=== PATIENT | female | born 1960 | race Caucasian/White ===

== ENCOUNTER 2017-05-18 09:21 | Outpatient (CLI) | payer OTHER ==
--- NOTE | 2017-05-19 18:12 | Mammography Report ---
DIGITAL BILATERAL SCREENING MAMMOGRAM: 05/18/2017 HISTORY: A 56-year-old female, family history of breast cancer. COMPARISON: 03/2015, 02/2014, 02/2013, 12/2011, 12/2010, 12/2009. TECHNIQUE: Routine CC and MLO projections were obtained of the breasts. FINDINGS: Scattered fibroglandular tissue is present within the breasts. There are no dominant jt s, suspicious microcalcifications, or secondary signs of malignancy. In comparison to the previous st udies, there are no significant changes. The pattern of asymmetry is stable given positional differences. ASSESSMENT: NO MAMMOGRAPHIC EVIDENCE OF MALIGNANCY. NO SIGNIFICANT INTERVAL CHANGES. RECOMMENDATION: Screening mammography is recommended annually. BI-RADS category 1 - negative. STANDARD QUALIFYING STATEMENTS 1. This examination was reviewed with the aid of Computed-Aided Detection (CAD). 2. A negative or benign imaging report should not delay biopsy if clinically suspicious findings are present. Consider surgical consultation if warranted. More than 5% of cancers are not identified by i maging. 3. Dense breasts may obscure an underlying neoplasm. JOB #: [id number] EXT JOB #:[id number]
== END 2017-05-18 09:22 | disposition home or self-care (01) ==
LOC: DI 09:21
PROVIDERS: ATTEND Nurse Practitioner Family
DX: Z12.31 Encounter for screening mammogram for malignant neoplasm of breast (principal); Z80.3 Family history of malignant neoplasm of breast
CPT/HCPCS: 77067

== ENCOUNTER 2017-11-04 14:40 | Outpatient (CLI) | payer OTHER ==
[2017-11-04 18:54] LABS: PHOSPHORUS 3.2 mg/dL (2.5-4.6)
== END 2017-11-04 14:41 | disposition home or self-care (01) ==
LOC: LAB.F 14:40
PROVIDERS: ATTEND Internal Medicine Nephrology
DX: N18.3 Chronic kidney disease, stage 3 (moderate) (principal)
CPT/HCPCS: 36415; 80069; 83970

== ENCOUNTER 2017-12-22 20:07 | Outpatient (CLI) | payer OTHER ==
--- NOTE | 2017-12-23 10:50 | Ultrasound Report ---
RENAL ULTRASOUND: 12/22/2017 CLINICAL INDICATION: Elevated creatinine, chronic kidney disease. TECHNIQUE: Real-time scanning was performed with employee's representative static images obtained. FINDINGS: The right kidney measures 10.1 x 5.0 x 4.4 cm. No hydronephrosis, focal renal lesion, or perinephric collection is seen. The left kidney measures 10.2 x 6.2 x 5.3 cm. An 8 mm cyst is noted in the upper pole. No hydronephrosis, solid renal lesion, or perinephric collection is present. Prevoid, the urinary bladder measures 13.1 x 8.9 x 4.6 cm, yielding a prevoid volume of 283 mL. Postvoid residual is 19 mL. No focal bladder lesion is seen. IMPRESSION: NO HYDRONEPHROSIS. NO SIGNIFICANT POSTVOID RESIDUAL. INCIDENTAL LEFT RENAL CYST. TD: 12/23/2017 10:49
== END 2017-12-22 20:08 | disposition home or self-care (01) ==
LOC: DI 20:07
PROVIDERS: ATTEND Internal Medicine Nephrology
DX: N18.3 Chronic kidney disease, stage 3 (moderate) (principal)
CPT/HCPCS: 76770

== ENCOUNTER 2018-05-10 08:51 | Emergency (ER) | payer OTHER ==
--- NOTE | 2018-05-10 09:50 | ED Physician Documentation ---
PD HPI MHE - Stated complaint Stated Complaint: MHE - Chief complaint Chief Complaint: MHE - History obtained from History obtained from: Patient, Family - History of Present Illness Primary symptom: Psychosis, Manic. No: Off meds (but daughter says the patient is not taking them regularly the past week or so), Out of meds Timing - onset: How many weeks ago (She has been having hypomania for about a month. She saw her psychiatric provider April 21 and had an increase in her Abilify from 5-15 mg daily and also Depakote added. She saw her provider again a week and a half ago with increasing the Depakote level dosing slightly. The patient is irregularly taking her medications according to family. She has been having more manic symptoms in the past week. She has been spending money and acting hypersexual and cut her hair with home scissors last night. She had not had a manic episode like this for 12 years. She had been treated pretty well with medications including lithium but the lithium was discontinued 3 months ago due to an elevation of creatinine.) Contributing factors: Family, Other (change in meds - taken off lithium 3 months ago due to renal effect. Started new med just 3 weeks ago when starting with hypomania.) Similar symptoms before: Diagnosis (bipolar) Recently seen: Clinic (3 weeks ago and again 1 1/2 weeks ago.) Review of Systems Constitutional: denies: Fever Nose: reports: Congestion, Sinus pressure / pain. denies: Rhinorrhea / runny nose Throat: denies: Sore throat Cardiac: denies: Chest pain / pressure Respiratory: denies: Dyspnea, Cough, Wheezing GI: reports: Vomiting (once today). denies: Abdominal Pain, Nausea, Diarrhea, Bloody / black stool : denies: Dysuria, Frequency, Missed period Skin: denies: Rash Neurologic: reports: Altered mental status. 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 - Present Medications Home Medications: Ambulatory Orders Medication Instructions Recorded Confirmed ARIPiprazole [Abilify] 5 mg 05/10/18 Bupropion HCl [Wellbutrin Sr] 250 mg 05/10/18 Divalproex Sodium [Depakote] 250 mg 05/10/18 Thyroid,Pork [Nature-Throid] 65 mg 05/10/18 lamoTRIgine [LaMICtal] 25 mg 05/10/18 - Allergies Allergies/Adverse Reactions: Allergies Allergy/AdvReac Type Severity Reaction Status Date / Time Opioids - Morphine Analogues Allergy Mild Itching Verified 05/10/18 09:09 Sulfa (Sulfonamide Allergy Mild Itching Verified 05/10/18 09:10 Antibiotics) - Social History Does the pt smoke?: Yes Smoking Status: Current every day smoker Does the pt drink ETOH?: No Does the pt have substance abuse?: Yes Substance Use and Type: Marijuana PD ED PE NORMAL - Vitals Vital signs reviewed: Yes - General General: Alert and oriented X 3, Well developed/nourished, Other (considerable tangential thought process. Hypersexual references. Close cropped irregular haircut noted. ) - HEENT HEENT: Pharynx benign - Neck Neck: Supple, no meningeal sign, No adenopathy - Cardiac Cardiac: RRR, No murmur - Respiratory Respiratory: Clear bilaterally - Abdomen Abdomen: Soft, Non tender - Derm Derm: Normal color, Warm and dry - Extremities Extremities: No tenderness to palpate, Normal ROM s pain, No edema - Neuro Neuro: Alert and oriented X 3, No motor deficit, Normal speech Eye Opening: Spontaneous Motor: Obeys Commands Verbal: Oriented GCS Score: 15 - Psych Psych: No: Normal mood (somewhat elated and pressured speech. flight of associations.) Results - Vitals Vitals: Vital Signs - 24 hr 05/10/18 05/10/18 08:59 17:24 Temperature 36.5 C 36.3 C L Heart Rate 95 90 Respiratory 16 18 Rate Blood Pressure 129/86 H 130/74 O2 Saturation 100 99 Oxygen O2 Source Room air - Labs Labs: Laboratory Tests 05/10/18 05/10/18 05/10/18 10:00 10:00 10:00 WBC RBC Hgb Hct MCV MCH MCHC RDW Plt Count MPV Neut # (Auto) Lymph # (Auto) [place] # (Auto) Eos # (Auto) Baso # (Auto) Absolute Nucleated RBC Nucleated RBC % Sodium Potassium Chloride Carbon Dioxide Anion Gap BUN Creatinine Estimated GFR (MDRD) Glucose Calcium Magnesium Total Bilirubin AST ALT Alkaline Phosphatase Total Protein Albumin Globulin Albumin/Globulin Ratio Lipase Urine Color YELLOW Urine Clarity CLEAR Urine pH 6.0 Ur Specific [place] 1.020 1.020 Urine Protein NEGATIVE Urine Glucose (UA) NEGATIVE Urine Ketones TRACE Urine Occult Blood NEGATIVE Urine Nitrite NEGATIVE Urine Bilirubin NEGATIVE Urine Urobilinogen 0.2 (NORMAL) Ur Leukocyte Esterase NEGATIVE Ur Microscopic Review NOT INDICATED Urine Culture Comments NOT INDICATED Urine HCG, Qual NEGATIVE Last Dose Date Last Dose Time Salicylates Urine Opiates Screen NEGATIVE Ur Oxycodone Screen NEGATIVE Urine Methadone Screen NEGATIVE Ur Propoxyphene Screen NEGATIVE Acetaminophen Ur Barbiturates Screen NEGATIVE Valproic Acid Ur Tricyclics Screen NEGATIVE Ur Phencyclidine Scrn NEGATIVE Ur Amphetamine Screen NEGATIVE U Methamphetamines Scrn NEGATIVE U Benzodiazepines Scrn NEGATIVE Urine Cocaine Screen NEGATIVE U Cannabinoids Screen POSITIVE H Ethyl Alcohol 05/10/18 05/10/18 10:30 10:30 WBC 9.5 RBC 4.64 Hgb 11.9 L Hct 36.6 L MCV 78.9 L MCH 25.7 L MCHC 32.5 RDW 18.1 H Plt Count 281 MPV 7.2 L Neut # (Auto) 6.4 Lymph # (Auto) 2.3 [place] # (Auto) 0.7 Eos # (Auto) 0.0 Baso # (Auto) 0.1 Absolute Nucleated RBC 0.00 Nucleated RBC % 0.0 Sodium 137 Potassium 3.5 Chloride 106 Carbon Dioxide 25 Anion Gap 6.0 BUN 22 H Creatinine 0.9 Estimated GFR (MDRD) 65 L Glucose 96 Calcium 9.0 Magnesium 2.1 Total Bilirubin 0.7 AST 26 ALT 27 Alkaline Phosphatase 72 Total Protein 6.8 Albumin 3.5 Globulin 3.3 Albumin/Globulin Ratio 1.1 Lipase 30 Urine Color Urine Clarity Urine pH Ur Specific [place] Urine Protein Urine Glucose (UA) Urine Ketones Urine Occult Blood Urine Nitrite Urine Bilirubin Urine Urobilinogen Ur Leukocyte Esterase Ur Microscopic Review Urine Culture Comments Urine HCG, Qual Last Dose Date UNKNOWN Last Dose Time UNKNOWN Salicylates < 6.0 Urine Opiates Screen Ur Oxycodone Screen Urine Methadone Screen Ur Propoxyphene Screen Acetaminophen < 10 L Ur Barbiturates Screen Valproic Acid 39.9 Ur Tricyclics Screen Ur Phencyclidine Scrn Ur Amphetamine Screen U Methamphetamines Scrn U Benzodiazepines Scrn Urine Cocaine Screen U Cannabinoids Screen Ethyl Alcohol < 5.0 PD MEDICAL DECISION MAKING - ED course Complexity details: re-evaluated patient (here in ED, the patient has loose and tangential thought process, she is emptying soap dispensers and filling them with water and pouring it on herself, she is wanting a sweatshirt since she is cool, and offered a blanket, but says "no, it has to be a sweatshirt". Laughing and singing loudly at times, then quieter. Seems to be manic and not able to take care of herself. ), considered differential (She is having considerable manic symptoms despite increased medicines over the last 3 weeks. She is more manic the past week. She is somewhat aware of her symptoms but her family says she has been irregularly taking her medicines the last several days to week. I believe she will need hospitalization to control her symptoms.), d/w patient, d/ w databases computer consultant (Plastic Parts Designer, then [facility] Kristina, who felt patient was disabled due to her psychosis and felt she needed to be hospitalized. ) - Sepsis Event Vital Signs: Vital Signs - 24 hr 05/10/18 05/10/18 08:59 17:24 Temperature 36.5 C 36.3 C L Heart Rate 95 90 Respiratory 16 18 Rate Blood Pressure 129/86 H 130/74 O2 Saturation 100 99 Oxygen O2 Source Room air Departure - Departure Disposition: 65 Psych Hosp/Unit DC/Xfer Clinical Impression: Manic behavior, Affective psychosis Bipolar disorder (manic depression) Qualifiers: Active/Remission status: currently active Current bipolar episode type: manic Current episode severity: severe Psychotic features: with psychotic features Qualified Code(s): F31.2 - Bipolar disorder, current episode manic severe with psychotic features Condition: Stable Record reviewed to determine appropriate education?: Yes
[2018-05-10] MEDS ORDERED: ACETAMINOPHEN 325 MG TABLET PO STA (10:19)
[2018-05-10 10:21] LABS: BILIRUBIN,URINE NEGATIVE (NEGATIVE); GLUCOSE, URINE (UA) NEGATIVE (NEGATIVE); KETONES,URINE (UA) TRACE mg/dL (NEGATIVE); LEUKOCYTE ESTERASE, URINE NEGATIVE (NEGATIVE); NITRITE,URINE NEGATIVE (NEGATIVE); OCCULT BLOOD,URINE NEGATIVE (NEGATIVE); PROTEIN,URINE NEGATIVE (NEGATIVE); UROBILINOGEN,URINE 0.2 (NORMAL) E.U./dL (NORMAL)
[2018-05-10 10:24] LABS: CLARITY,URINE CLEAR (CLEAR)
[2018-05-10 10:40] LABS: BASOPHILS # (AUTO) 0.1 10^3/uL (0.0-0.1); BASOPHILS % (AUTO) 0.9 %; EOSINOPHILS % (AUTO) 0.5 %; HGB - HEMOGLOBIN 11.9 g/dL (12.0-16.0); LYMPHOCYTES # (AUTO) 2.3 10^3/uL (1.5-3.5); LYMPHOCYTES % (AUTO) 23.8 %; MEAN CORPUSCULAR HEMOGLOBIN 25.7 pg (27.0-31.0); MEAN CORPUSCULAR HGB CONC 32.5 g/dL (32.0-36.0); MEAN CORPUSCULAR VOLUME 78.9 fL (81.0-99.0); MEAN PLATELET VOLUME 7.2 fL (7.9-10.8); MONOCYTES # (AUTO) 0.7 10^3/uL (0.0-1.0); MONOCYTES % (AUTO) 7.1 %; NEUTROPHILS # (AUTO) 6.4 10^3/uL (1.5-6.6); NEUTROPHILS % (AUTO) 67.7 %; PLT - PLATELET COUNT 281 10^3/uL (130-450); RED BLOOD COUNT 4.64 10^6/uL (4.20-5.40); RED CELL DISTRIBUTION WIDTH 18.1 % (12.0-15.0); WHITE BLOOD COUNT 9.5 x10^3/uL (4.8-10.8)
[2018-05-10 10:58] LABS: ALBUMIN 3.5 g/dL (3.2-5.5); ALBUMIN/GLOBULIN RATIO 1.1 (1.0-2.2); ALKALINE PHOSPHATASE 72 IU/L (42-121); ALT ALANINE AMINOTRANSFERASE 27 IU/L (10-60); AST ASPARTATE AMINOTRANSFERASE 26 IU/L (10-42); BILIRUBIN,TOTAL 0.7 mg/dL (0.2-1.0); BUN - BLOOD UREA NITROGEN 22 mg/dL (6-20); CARBON DIOXIDE - CO2 25 mmol/L (21-32); CHLORIDE 106 mmol/L (101-111); CREATININE 0.9 mg/dL (0.4-1.0); GFR - MDRD 65 (>89); GLUCOSE 96 mg/dL (70-100); LIPASE 30 U/L (22-51); MAGNESIUM 2.1 mg/dL (1.7-2.8); SALICYLATE < 6.0 mg/dL; SODIUM 137 mmol/L (135-145); TOTAL PROTEIN 6.8 g/dL (6.7-8.2); VALPROIC ACID (DEPAKOTE) 39.9 ug/mL
[2018-05-10 11:04] LABS: ACETAMINOPHEN < 10 ug/mL (10-30)
[2018-05-10 11:11] LABS: MUDS CUTOFF CONCENTRATIONS CUTOFF CONC BELOW:
[2018-05-10 11:18] LABS: HCG UR QUAL NEGATIVE
[2018-05-10 11:26] LABS: AMPHETAMINE SCREEN,URINE NEGATIVE (NEGATIVE); BENZODIAZEPINES SCREEN, URINE NEGATIVE (NEGATIVE); COCAINE SCREEN URINE NEGATIVE (NEGATIVE); METHADONE SCREEN, URINE NEGATIVE (NEGATIVE); METHAMPHETAMINES SCREEN, URINE NEGATIVE (NEGATIVE); OPIATE SCREEN, URINE NEGATIVE (NEGATIVE); OXYCODONE SCREEN, URINE NEGATIVE (NEGATIVE); PROPOXYPHENE SCREEN, URINE NEGATIVE (NEGATIVE); TRICYCLIC ANTIDEPRESSANT,URINE NEGATIVE (NEGATIVE)
[2018-05-10] MEDS ORDERED: OLANZapine ODT 5 MG TABLET TL ONE (15:09)
[2018-05-10] MEDS ORDERED: LORazepam 0.5 MG TABLET PO STA (19:18)
[2018-05-10] MEDS ORDERED: OLANZapine ODT 5 MG TABLET TL STA (19:18)
[2018-05-10] MEDS ORDERED: HALOPERIDOL 5 MG/ML VIAL ONE (19:30)
[2018-05-10] MEDS ORDERED: HALOPERIDOL 5 MG/ML VIAL IM STA (19:33)
[2018-05-10 23:40] VITALS: BP 110/72
== END 2018-05-11 00:05 ==
LOC: ED 08:51
DX: F31.2 Bipolar disorder, current episode manic severe with psychotic features (principal); E03.9 Hypothyroidism, unspecified; F17.200 Nicotine dependence, unspecified, uncomplicated
CPT/HCPCS: 36415; 80053; 80164; 80306; 80307; 80320; 80329; 81003; 81025; 83690; 83735; 84443; 85025; 99284; 99285; A9270; 81001; 87086; 99283

== ENCOUNTER 2018-06-25 08:46 | Outpatient (CLI) | payer OTHER ==
[2018-06-25 12:59] LABS: BASOPHILS % (AUTO) 0.3 %; EOSINOPHILS # (AUTO) 0.2 10^3/uL (0.0-0.7); EOSINOPHILS % (AUTO) 3.2 %; HGB - HEMOGLOBIN 11.5 g/dL (12.0-16.0); LYMPHOCYTES # (AUTO) 1.9 10^3/uL (1.5-3.5); LYMPHOCYTES % (AUTO) 33.4 %; MEAN CORPUSCULAR HEMOGLOBIN 25.7 pg (27.0-31.0); MEAN CORPUSCULAR HGB CONC 32.8 g/dL (32.0-36.0); MEAN CORPUSCULAR VOLUME 78.4 fL (81.0-99.0); MEAN PLATELET VOLUME 9.8 fL (7.9-10.8); MONOCYTES # (AUTO) 0.3 10^3/uL (0.0-1.0); MONOCYTES % (AUTO) 5.9 %; NEUTROPHILS # (AUTO) 3.3 10^3/uL (1.5-6.6); NEUTROPHILS % (AUTO) 57.2 %; PLT - PLATELET COUNT 39 10^3/uL (130-450); RED BLOOD COUNT 4.46 10^6/uL (4.20-5.40); RED CELL DISTRIBUTION WIDTH 16.9 % (12.0-15.0); WHITE BLOOD COUNT 5.8 x10^3/uL (4.8-10.8)
[2018-06-25 13:15] LABS: T4 (THYROXINE) 7.9 ug/dL (6.09-12.23)
[2018-06-25 13:21] LABS: THYROID STIMULATING HORMONE 3.43 uIU/mL (0.34-5.60)
[2018-06-25 13:22] LABS: ALBUMIN 3.3 g/dL (3.2-5.5); ALBUMIN/GLOBULIN RATIO 0.9 (1.0-2.2); ALKALINE PHOSPHATASE 71 IU/L (42-121); ALT ALANINE AMINOTRANSFERASE 34 IU/L (10-60); AST ASPARTATE AMINOTRANSFERASE 32 IU/L (10-42); BILIRUBIN,TOTAL 0.5 mg/dL (0.2-1.0); BUN - BLOOD UREA NITROGEN 24 mg/dL (6-20); CALCIUM 9.1 mg/dL (8.5-10.3); CARBON DIOXIDE - CO2 25 mmol/L (21-32); CHLORIDE 106 mmol/L (101-111); CHOL/HDL RATIO 3.6 (<4.4); CHOLESTEROL 202 mg/dL; CRP HIGH SENSITIVITY 2.8 mg/L; FREE T4 (FREE THYROXINE) 0.67 ng/dL (0.58-1.64); GFR - MDRD 58 (>89); GLUCOSE 91 mg/dL (70-100); HDL CHOLESTEROL 56 mg/dL; LDL CHOLESTEROL,CALCULATED 116 mg/dL; LDL/HDL RATIO 2.1 (<4.4); SODIUM 140 mmol/L (135-145); TOTAL PROTEIN 6.8 g/dL (6.7-8.2); VLDL CHOLESTEROL 30 mg/dL
[2018-06-25 13:51] LABS: HB2 TOTAL 11.9 g/dL; HEMOGLOBIN A1C 0.51 g/dL; HEMOGLOBIN A1C % 6.1 % (4.6-6.2)
== END 2018-06-25 08:47 | disposition home or self-care (01) ==
LOC: LAB.F 08:46
PROVIDERS: ATTEND Registered Nurse
DX: Z00.00 Encounter for general adult medical examination without abnormal findings (principal); E55.9 Vitamin D deficiency, unspecified; E78.5 Hyperlipidemia, unspecified; E03.2 Hypothyroidism due to medicaments and other exogenous substances; R73.9 Hyperglycemia, unspecified; F31.9 Bipolar disorder, unspecified
CPT/HCPCS: 36415; 80053; 80061; 80164; 82306; 82728; 83036; 83721; 84436; 84439; 84443; 84481; 85025; 86141

== ENCOUNTER 2018-07-16 13:30 | Outpatient (CLI) | payer OTHER ==
[2018-07-16 18:32] LABS: BASOPHILS # (AUTO) 0.1 10^3/uL (0.0-0.1); BASOPHILS % (AUTO) 1.7 %; HGB - HEMOGLOBIN 12.2 g/dL (12.0-16.0); LYMPHOCYTES % (AUTO) 16.8 %; MEAN CORPUSCULAR HEMOGLOBIN 25.5 pg (27.0-31.0); MEAN CORPUSCULAR HGB CONC 32.2 g/dL (32.0-36.0); MEAN CORPUSCULAR VOLUME 79.1 fL (81.0-99.0); MEAN PLATELET VOLUME 11.3 fL (7.9-10.8); MONOCYTES # (AUTO) 0.4 10^3/uL (0.0-1.0); MONOCYTES % (AUTO) 6.3 %; NEUTROPHILS # (AUTO) 4.5 10^3/uL (1.5-6.6); NEUTROPHILS % (AUTO) 75.2 %; RED BLOOD COUNT 4.77 10^6/uL (4.20-5.40); RED CELL DISTRIBUTION WIDTH 16.7 % (12.0-15.0)
[2018-07-16 18:46] LABS: PLATELET ESTIMATE, MANUAL DECREASED (<130,000) (NORMAL); PLATELET MORPHOLOGY NORMAL APPEARANCE (NORMAL); RBC MORPHOLOGY (MULTIPLE) NORMAL APPEARANCE (NORMAL)
[2018-07-19 11:54] LABS: PLT - PLATELET COUNT 33 10^3/uL (130-450)
== END 2018-07-16 13:31 | disposition home or self-care (01) ==
LOC: LAB.F 13:30
PROVIDERS: ATTEND Registered Nurse
DX: F31.0 Bipolar disorder, current episode hypomanic (principal)
CPT/HCPCS: 36415; 85025

== ENCOUNTER 2018-07-20 13:12 | Emergency (ER) | payer OTHER ==
[2018-07-20 13:49] LABS: BASOPHILS % (AUTO) 0.4 %; EOSINOPHILS % (AUTO) 0.1 %; HGB - HEMOGLOBIN 12.7 g/dL (12.0-16.0); LYMPHOCYTES # (AUTO) 1.4 10^3/uL (1.5-3.5); LYMPHOCYTES % (AUTO) 19.9 %; MEAN CORPUSCULAR HEMOGLOBIN 25.7 pg (27.0-31.0); MEAN CORPUSCULAR HGB CONC 32.4 g/dL (32.0-36.0); MEAN CORPUSCULAR VOLUME 79.2 fL (81.0-99.0); MEAN PLATELET VOLUME 10.4 fL (7.9-10.8); MONOCYTES # (AUTO) 0.4 10^3/uL (0.0-1.0); MONOCYTES % (AUTO) 5.6 %; NEUTROPHILS # (AUTO) 5.2 10^3/uL (1.5-6.6); PLT - PLATELET COUNT 43 10^3/uL (130-450); RED BLOOD COUNT 4.96 10^6/uL (4.20-5.40); RED CELL DISTRIBUTION WIDTH 16.9 % (12.0-15.0)
[2018-07-20 13:56] LABS: ALBUMIN/GLOBULIN RATIO 1.1 (1.0-2.2); BILIRUBIN,TOTAL 0.6 mg/dL (0.2-1.0); CALCIUM 9.6 mg/dL (8.5-10.3); INR 1.1 (0.8-1.2); TOTAL PROTEIN 7.6 g/dL (6.7-8.2)
--- NOTE | 2018-07-20 15:54 | ED Physician Documentation ---
History of Present Illness - Stated complaint Stated Complaint: BRUISE/LUMP L HIP/ LOW PLATELETS - Chief complaint Chief Complaint: General - Additonal information Additional information: 57-year-old female was sent to the emergency department to be evaluated for a bruise on her abdomen. The patient was found to have low platelets recently and was taken off Depakote. The patient was at her mental health appointment and was sent in for a bruise on her abdomen. The Patient denies any active bleeding, blood in her stools, vomiting or any signs of active hemorrhage.No other associated symptoms. Symptoms are described as mild. 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 - Present Medications Home Medications: Ambulatory Orders Medication Instructions Recorded Confirmed ARIPiprazole [Abilify] 5 mg 05/10/18 Divalproex Sodium [Depakote] 250 mg 05/10/18 Thyroid,Pork [Nature-Throid] 65 mg 05/10/18 buPROPion HCl [Wellbutrin Sr] 250 mg 05/10/18 lamoTRIgine [LaMICtal] 25 mg 05/10/18 - Allergies Allergies/Adverse Reactions: Allergies Allergy/AdvReac Type Severity Reaction Status Date / Time Opioids - Morphine Analogues Allergy Mild Itching Verified 07/20/18 13:18 Sulfa (Sulfonamide Allergy Mild Itching Verified 07/20/18 13:18 Antibiotics) - Social History Does the pt smoke?: Yes Smoking Status: Current every day smoker Does the pt drink ETOH?: No Does the pt have substance abuse?: Yes PD ED PE NORMAL - General General: Alert and oriented X 3, No acute distress - HEENT HEENT: Atraumatic, PERRL, EOMI, Ears normal - Cardiac Cardiac: RRR, Strong equal pulses - Respiratory Respiratory: No respiratory distress, Clear bilaterally - Abdomen Abdomen: Soft, Non tender, Non distended - Derm Derm: Normal color - Extremities Extremities: No deformity, Normal ROM s pain PD ED PE EXPANDED - Derm SKin visual: 1 - bruising (The patient has a very small superficial cutaneous bruise, there is no evidence of underlying hematoma on physical exam. There is no evidence of active bleeding. The bruise appears old with color changes to suggest a old bruise. No signs of active hemorrhage) Results - Vitals Vitals: Vital Signs - 24 hr 07/20/18 13:14 Temperature 36.8 C Heart Rate 91 Respiratory 16 Rate Blood Pressure 132/85 H O2 Saturation 99 Oxygen O2 Source Room air - Labs Labs: Laboratory Tests 07/20/18 07/20/18 07/20/18 13:33 13:33 13:33 WBC 7.0 RBC 4.96 Hgb 12.7 Hct 39.3 MCV 79.2 L MCH 25.7 L MCHC 32.4 RDW 16.9 H Plt Count 43 L MPV 10.4 Neut # (Auto) 5.2 Lymph # (Auto) 1.4 L [place] # (Auto) 0.4 Eos # (Auto) 0.0 Baso # (Auto) 0.0 Absolute Nucleated RBC 0.00 Nucleated RBC % 0.0 PT 12.0 INR 1.1 Sodium 142 Potassium 4.0 Chloride 107 Carbon Dioxide 27 Anion Gap 8.0 BUN 17 Creatinine 1.0 Estimated GFR (MDRD) 58 L Glucose 110 H Calcium 9.6 Total Bilirubin 0.6 AST 30 ALT 45 Alkaline Phosphatase 85 Total Protein 7.6 Albumin 4.0 Globulin 3.6 Albumin/Globulin Ratio 1.1 Lipase 25 PD MEDICAL DECISION MAKING - ED course ED course: The patient's platelets have actually increased from her most recent lab work. The patient has no active bleeding and the bruise that she was sent in for is Small and appears old. There is no under lying evidence of hematoma. Presently, there is no findings that would necessitate further workup in the emergency department nor Emergent transfusion of platelets. I did advise the patient that she needs further workup regarding her thrombocytopenia. I recomm ended that she follow-up with the hematology clinic at the [facility]. I discussed this with the patient and her daughter and they understand and agree. I discussed warning signs and recommended returning to the emergency department immediately for any worsening or any concerns. Departure - Departure Disposition: 01 Home, Self Care Clinical Impression: Thrombocytopenia, Bruise Condition: Good Instructions: Thrombocytopenia Comments: Please schedule an appointment with the plastics production machine operator at the [facility] clinic call [phone] To schedule an appointment for soon as possible. You need further workup and evaluation of your low platelets. Presently, you have no active bleeding and no indication for emergent transfusion. Your condition does require further workup to rule out any other insidious etiology. Please return to the emergency department immediately for any worsening or any concerns.
[2018-07-20 16:02] VITALS: BP 128/88
== END 2018-07-20 16:00 | disposition home or self-care (01) ==
LOC: ED 13:12
DX: D69.6 Thrombocytopenia, unspecified (principal); S30.1XXA Contusion of abdominal wall, initial encounter; X58.XXXA Exposure to other specified factors, initial encounter; E03.9 Hypothyroidism, unspecified; F17.200 Nicotine dependence, unspecified, uncomplicated; Z96.649 Presence of unspecified artificial hip joint
CPT/HCPCS: 36415; 80053; 83690; 85025; 85610; 99283

== ENCOUNTER 2018-07-28 11:22 | Outpatient (CLI) | payer OTHER ==
[2018-07-28 18:01] LABS: BASOPHILS % (AUTO) 0.2 %; EOSINOPHILS % (AUTO) 0.3 %; HGB - HEMOGLOBIN 12.7 g/dL (12.0-16.0); LYMPHOCYTES # (AUTO) 1.1 10^3/uL (1.5-3.5); LYMPHOCYTES % (AUTO) 20.3 %; MEAN CORPUSCULAR HEMOGLOBIN 25.7 pg (27.0-31.0); MEAN CORPUSCULAR HGB CONC 31.5 g/dL (32.0-36.0); MEAN CORPUSCULAR VOLUME 81.8 fL (81.0-99.0); MEAN PLATELET VOLUME 11.3 fL (7.9-10.8); MONOCYTES # (AUTO) 0.2 10^3/uL (0.0-1.0); MONOCYTES % (AUTO) 4.1 %; NEUTROPHILS % (AUTO) 75.1 %; RED BLOOD COUNT 4.95 10^6/uL (4.20-5.40); RED CELL DISTRIBUTION WIDTH 18.6 % (12.0-15.0); WHITE BLOOD COUNT 5.4 x10^3/uL (4.8-10.8)
[2018-07-28 18:17] LABS: PLT - PLATELET COUNT 34 10^3/uL (130-450)
[2018-07-28 18:33] LABS: T4 (THYROXINE) 8.06 ug/dL (6.09-12.23)
[2018-07-28 18:36] LABS: THYROID STIMULATING HORMONE 1.19 uIU/mL (0.34-5.60)
[2018-07-28 18:41] LABS: FERRITIN 11.4 ng/mL (11.0-306.8)
== END 2018-07-28 11:23 | disposition home or self-care (01) ==
LOC: LAB.F 11:22
PROVIDERS: ATTEND Nurse Practitioner Family
DX: I10 Essential (primary) hypertension (principal); D64.9 Anemia, unspecified; E05.90 Thyrotoxicosis, unspecified without thyrotoxic crisis or storm
CPT/HCPCS: 36415; 82728; 83540; 84436; 84443; 84481; 85025

== ENCOUNTER 2018-09-03 12:56 | Outpatient (CLI) | payer OTHER ==
[2018-09-03 18:13] LABS: ALBUMIN 4.1 g/dL (3.2-5.5); CALCIUM 9.3 mg/dL (8.5-10.3); PHOSPHORUS 3.3 mg/dL (2.5-4.6)
== END 2018-09-03 12:57 | disposition home or self-care (01) ==
LOC: LAB.F 12:56
PROVIDERS: ATTEND Internal Medicine Nephrology
DX: E78.5 Hyperlipidemia, unspecified (principal); E03.9 Hypothyroidism, unspecified
CPT/HCPCS: 36415; 80069; 83970

== ENCOUNTER 2018-09-21 10:01 | Outpatient (CLI) | payer OTHER ==
[2018-09-21 17:51] LABS: HB2 TOTAL 14.5 g/dL; HEMOGLOBIN A1C 0.54 g/dL; HEMOGLOBIN A1C % 5.6 % (4.6-6.2)
== END 2018-09-21 10:02 | disposition home or self-care (01) ==
LOC: LAB.F 10:01
PROVIDERS: ATTEND Nurse Practitioner Family
DX: R73.9 Hyperglycemia, unspecified (principal); M79.10 Myalgia, unspecified site
CPT/HCPCS: 36415; 83036; 86140

== ENCOUNTER 2019-04-11 04:41 | Outpatient (CLI) | payer MEDICARE, OTHER ==
[2019-04-11 05:22] LABS: BASOPHILS % (AUTO) 0.1 %; EOSINOPHILS # (AUTO) 0.1 10^3/uL (0.0-0.7); EOSINOPHILS % (AUTO) 0.9 %; HGB - HEMOGLOBIN 13.4 g/dL (12.0-16.0); LYMPHOCYTES # (AUTO) 1.5 10^3/uL (1.5-3.5); MEAN CORPUSCULAR HEMOGLOBIN 26.1 pg (27.0-31.0); MEAN CORPUSCULAR HGB CONC 31.5 g/dL (32.0-36.0); MEAN CORPUSCULAR VOLUME 82.9 fL (81.0-99.0); MEAN PLATELET VOLUME 10.3 fL (7.9-10.8); MONOCYTES # (AUTO) 0.3 10^3/uL (0.0-1.0); MONOCYTES % (AUTO) 4.8 %; NEUTROPHILS # (AUTO) 4.8 10^3/uL (1.5-6.6); NEUTROPHILS % (AUTO) 71.1 %; PLT - PLATELET COUNT 141 10^3/uL (130-450); RED BLOOD COUNT 5.14 10^6/uL (4.20-5.40); RED CELL DISTRIBUTION WIDTH 15.5 % (12.0-15.0); WHITE BLOOD COUNT 6.7 x10^3/uL (4.8-10.8)
[2019-04-11 05:39] LABS: ALBUMIN 4.1 g/dL (3.2-5.5); ALBUMIN/GLOBULIN RATIO 1.2 (1.0-2.2); ALKALINE PHOSPHATASE 95 IU/L (42-121); ALT ALANINE AMINOTRANSFERASE 24 IU/L (10-60); AST ASPARTATE AMINOTRANSFERASE 20 IU/L (10-42); BILIRUBIN,TOTAL 0.7 mg/dL (0.2-1.0); BUN - BLOOD UREA NITROGEN 25 mg/dL (6-20); CARBON DIOXIDE - CO2 23 mmol/L (21-32); CHLORIDE 105 mmol/L (101-111); CHOL/HDL RATIO 3.7 (<4.4); CHOLESTEROL 202 mg/dL; GFR - MDRD 57 (>89); GLUCOSE 106 mg/dL (70-100); HDL CHOLESTEROL 55 mg/dL; LDL CHOLESTEROL,CALCULATED 117 mg/dL; LDL/HDL RATIO 2.1 (<4.4); SODIUM 140 mmol/L (135-145); TOTAL PROTEIN 7.6 g/dL (6.7-8.2); VLDL CHOLESTEROL 30 mg/dL
[2019-04-11 05:45] LABS: HEMOGLOBIN A1C 0.58 g/dL; HEMOGLOBIN A1C % 5.9 % (4.6-6.2)
[2019-04-11 06:05] LABS: T4 (THYROXINE) 7.66 ug/dL (6.09-12.23)
[2019-04-11 06:08] LABS: THYROID STIMULATING HORMONE 2.26 uIU/mL (0.34-5.60)
[2019-04-11 06:10] LABS: FREE T4 (FREE THYROXINE) 0.67 ng/dL (0.58-1.64)
[2019-04-11 06:14] LABS: FERRITIN 5.8 ng/mL (11.0-306.8)
== END 2019-04-11 04:42 | disposition home or self-care (01) ==
LOC: LAB 04:41
PROVIDERS: ATTEND Nurse Practitioner Family
DX: Z00.00 Encounter for general adult medical examination without abnormal findings (principal); E55.9 Vitamin D deficiency, unspecified; E78.5 Hyperlipidemia, unspecified; E03.9 Hypothyroidism, unspecified; R73.9 Hyperglycemia, unspecified; E16.2 Hypoglycemia, unspecified
CPT/HCPCS: 36415; 80053; 80061; 81599; 82306; 82728; 83036; 83525; 83721; 84436; 84439; 84443; 84481; 85025

== ENCOUNTER 2019-04-15 11:31 | Outpatient (CLI) | payer OTHER ==
--- NOTE | 2019-04-18 15:08 | Mammography Report ---
Reason: SCREENING MAMMOGRAM Procedure Date: 04/15/2019 Accession Number: [id number] / [id number] Procedure: MGS - Screening Mammo Dig Bilat CPT Code: FULL RESULT: EXAM: Screening Mammo Dig Bilat DATE: 04/15/2019 11:55 AM CLINICAL HISTORY: Screening examination. History of early menses and late childbearing. Family history of breast cancer in the mother at the age of 80. TECHNIQUE: (B) - Bilateral CC and MLO views were obtained. COMPARISON: 05/18/2017 through 02/02/2013. PARENCHYMAL PATTERN: (F) - The breast(s) demonstrate(s) diffuse fatty replacement. FINDINGS: There are no suspicious masses, calcifications, or areas of distortion. IMPRESSION: Negative examination. BI-RADS category 1. RECOMMENDATION: (ANNUAL) - Recommend routine annual screening mammography. BI-RADS CATEGORY: (1) - Negative. STANDARD QUALIFYING STATEMENTS: 1. This examination was reviewed with the aid of Computer-Aided Detection (CAD). 2. A negative or benign imaging report should not preclude biopsy if clinically suspicious findings are present. 3. Dense breasts may obscure an underlying neoplasm. 4. This examination was reviewed without the aid of 3D breast imaging (tomosynthesis).
== END 2019-04-15 11:32 | disposition home or self-care (01) ==
LOC: DI.S 11:31
PROVIDERS: ATTEND Nurse Practitioner Family
DX: Z12.31 Encounter for screening mammogram for malignant neoplasm of breast (principal); Z80.3 Family history of malignant neoplasm of breast
CPT/HCPCS: 77067

== ENCOUNTER 2020-06-07 16:13 | Outpatient (CLI) | payer MEDICARE ==
[2020-06-07 20:05] LABS: CREATININE,URINE 63.2 mg/dL; TOTAL PROTEIN,URINE TIMED < 6 mg/dL
== END 2020-06-07 16:14 | disposition home or self-care (01) ==
LOC: LAB.S 16:13
PROVIDERS: ATTEND Physician Assistant
DX: N18.3 Chronic kidney disease, stage 3 (moderate) (principal); R73.9 Hyperglycemia, unspecified; R53.83 Other fatigue; F31.9 Bipolar disorder, unspecified; Z79.899 Other long term (current) drug therapy
CPT/HCPCS: 36415; 82306; 82570; 84156; 84443

== ENCOUNTER 2020-07-10 11:21 | Outpatient (CLI) | payer MEDICARE ==
[2020-07-10 15:39] LABS: CALCIUM 9.7 mg/dL (8.5-10.3)
== END 2020-07-10 11:22 | disposition home or self-care (01) ==
LOC: LAB.S 11:21
PROVIDERS: ATTEND Internal Medicine Nephrology
DX: N18.30 Chronic kidney disease, stage 3 unspecified (principal); N05.9 Unspecified nephritic syndrome with unspecified morphologic changes
CPT/HCPCS: 36415; 80048

== ENCOUNTER 2020-07-16 07:00 | Outpatient (CLI) | payer MEDICARE ==
[2020-07-17 14:57] LABS: CREATININE 24 HOUR,URINE 1310 mg/24h (600-1800); CREATININE,URINE 43.9 mg/dL; TOTAL VOLUME 24HRS,URINE 2985 mL
[2020-07-17 15:08] LABS: TOTAL PROTEIN,URINE TIMED < 6 mg/dL
== END 2020-07-16 23:59 | disposition home or self-care (01) ==
LOC: LAB.R 07:00
PROVIDERS: ATTEND Internal Medicine Nephrology
DX: N05.9 Unspecified nephritic syndrome with unspecified morphologic changes (principal); N18.30 Chronic kidney disease, stage 3 unspecified
CPT/HCPCS: 81599; 82570; 84156; 84540

== ENCOUNTER 2020-07-31 12:48 | Outpatient (CLI) | payer MEDICARE ==
[2020-07-31 16:51] LABS: FREE T4 (FREE THYROXINE) 0.87 ng/dL (0.58-1.64)
== END 2020-07-31 12:49 | disposition home or self-care (01) ==
LOC: LAB.S 12:48
PROVIDERS: ATTEND Physician Assistant
DX: E03.9 Hypothyroidism, unspecified (principal); R53.83 Other fatigue; Z79.899 Other long term (current) drug therapy
CPT/HCPCS: 36415; 84439; 84443

== ENCOUNTER 2020-10-07 13:13 | Outpatient (CLI) | payer MEDICARE | END 2020-10-07 13:14 | disposition home or self-care (01) | LOC: LAB.S 13:13 | PROVIDERS: ATTEND Physician Assistant | DX: E03.9 Hypothyroidism, unspecified (principal) | CPT/HCPCS: 36415; 84443 ==

== ENCOUNTER 2021-04-03 19:00 | Outpatient (CLI) | payer MEDICARE | END 2021-04-03 23:59 | disposition home or self-care (01) | LOC: LAB.S 19:00 | PROVIDERS: ATTEND Physician Assistant Medical | DX: J02.9 Acute pharyngitis, unspecified (principal) | CPT/HCPCS: 87070 ==

== ENCOUNTER 2021-04-04 08:00 | Outpatient (CLI) | payer MEDICARE ==
--- NOTE | 2021-04-04 08:16 | XRAY Report ---
PROCEDURE: Knee 3 View LT INDICATIONS: CONTUSION OF LEFT KNEE TECHNIQUE: 3 views of the left knee(s) were acquired. COMPARISON: None. FINDINGS: Bones: No fractures or dislocations. No suspicious bony lesions. Soft tissues: No joint effusion. No suspicious soft tissue calcifications. IMPRESSION: No trauma found, no joint effusion or intra-articular loose body seen. Reviewed by: Deshaun Dominguez MD on 04/04/2021 8:15 AM PDT Approved by: Deshaun Dominguez MD on 04/04/2021 8:15 AM PDT Station ID: [id number]
== END 2021-04-04 23:59 | disposition home or self-care (01) ==
LOC: DI.S 08:00
PROVIDERS: ATTEND Physician Assistant Medical
DX: S80.02XA Contusion of left knee, initial encounter (principal)

== ENCOUNTER 2021-05-19 15:14 | Outpatient (CLI) | payer MEDICARE ==
--- NOTE | 2021-05-20 09:22 | Mammography Report ---
BILATERAL DIGITAL SCREENING MAMMOGRAM 3D/2D: 05/19/2021 CLINICAL: Family history of breast cancer. Comparison is made to exams dated: 04/15/2019 mammogram, 05/18/2017 mammogram, 03/30/2015 mammogram, an d 02/09/2014 mammogram - [facility]. The tissue of both breasts is predominantly fat ty. No significant masses, calcifications, or other findings are seen in either breast. There has been no significant interval change. IMPRESSION: NEGATIVE There is no mammographic evidence of malignancy. A 1 year screening mammogram is recommended. This exam was interpreted at Station ID: [id number]. NOTE: For mammograms, a report in lay terms will be sent to the patient. Approximately 15% of breast malignancies will not be visualized mammographically. In the management of a palpable breast mass, a negative mammogram must not discourage biopsy of a clinically suspicious lesion. Electronically Signed By: Davis Otoole M.D. slc/penrad:05/20/2021 07:56:21 ACR BI-RADS Category 1: Negative 3341F PARENCHYMAL PATTERN: (F) - The breast(s) demonstrate(s) diffuse fatty replacement. BI-RADS CATEGORY: (1) - 1 RECOMMENDATION: (ANNUAL) - Recommend routine annual screening mammography. [id number] 1 year screening LATERALITY: (B)
== END 2021-05-19 15:15 | disposition home or self-care (01) ==
LOC: DI.S 15:14
DX: Z12.31 Encounter for screening mammogram for malignant neoplasm of breast (principal); Z80.3 Family history of malignant neoplasm of breast

== ENCOUNTER 2021-09-20 21:46 | Outpatient (CLI) | payer MEDICARE ==
[2021-09-20 22:13] LABS: CALCIUM 9.4 mg/dL (8.5-10.3); CREATININE 1.1 mg/dL (0.4-1.0); POTASSIUM 3.7 mmol/L (3.5-5.0)
[2021-09-20 22:31] LABS: CREATININE,URINE 125.4 mg/dL; PROTEIN/CREATININE RATIO,URINE 0.1 (<=0.2)
== END 2021-09-20 21:47 | disposition home or self-care (01) ==
LOC: LAB 21:46
PROVIDERS: ATTEND Internal Medicine Nephrology
DX: N05.9 Unspecified nephritic syndrome with unspecified morphologic changes (principal); E83.50 Unspecified disorder of calcium metabolism; R80.9 Proteinuria, unspecified
CPT/HCPCS: 36415; 80048; 82570; 84156

== ENCOUNTER 2022-06-27 11:17 | Outpatient (CLI) | payer MEDICARE ==
--- NOTE | 2022-06-30 16:35 | Mammography Report ---
BILATERAL DIGITAL SCREENING MAMMOGRAM 3D/2D: 06/27/2022 CLINICAL: Routine screening. Comparison is made to exams dated: 05/19/2021 mammogram, 04/15/2019 mammogram, 05/18/2017 mammogram, mammogram, and 02/09/2014 mammogram - [facility]. Both breasts are almost entirely fatty (category a/<25% glandular tissue). No significant masses, calcifications, or other findings are seen in either breast. There has been no significant interval change. IMPRESSION: NEGATIVE There is no mammographic evidence of malignancy. A 1 year screening mammogram is recommended. Based on the Tyrer Cuzick model (a risk assessment model) the patients lifetime risk is 5.7% and her 10 year risk is 2.2%. According to the ACR, ACS, and NCCN guidelines, an annual breast MRI exam jer g with mammogram is recommended if the patients lifetime risk is 20% or greater. This exam was interpreted at Station ID: [id number]. NOTE: For mammograms, a report in lay terms will be sent to the patient. Approximately 15% of breast malignancies will not be visualized mammographically. In the management of a palpable breast mass, a negative mammogram must not discourage biopsy of a clinically suspicious lesion. Electronically Signed By: Rick Kingston acr/penrad:06/27/2022 13:46:35 ACR BI-RADS Category 1: Negative 3341F PARENCHYMAL PATTERN: (F) - The breast(s) demonstrate(s) diffuse fatty replacement. BI-RADS CATEGORY: (1) - 1 RECOMMENDATION: (ANNUAL) - Recommend routine annual screening mammography. [id number] 1 year screening LATERALITY: (B)
== END 2022-06-27 11:18 | disposition home or self-care (01) ==
LOC: DI 11:17
DX: Z12.31 Encounter for screening mammogram for malignant neoplasm of breast (principal)

== ENCOUNTER 2022-11-17 22:49 | Emergency (ER) | payer MEDICARE ==
[2022-11-18 00:38] LABS: MUDS CUTOFF CONCENTRATIONS CUTOFF CONC BELOW:
[2022-11-18 00:42] LABS: BASOPHILS % (AUTO) 0.1 %; EOSINOPHILS % (AUTO) 0.1 %; HCT - HEMATOCRIT 40.7 % (37.0-47.0); HGB - HEMOGLOBIN 12.9 g/dL (12.0-16.0); LYMPHOCYTES # (AUTO) 2.1 10^3/uL (1.5-3.5); LYMPHOCYTES % (AUTO) 27.1 %; MEAN CORPUSCULAR HEMOGLOBIN 27.3 pg (27.0-31.0); MEAN CORPUSCULAR HGB CONC 31.7 g/dL (32.0-36.0); MEAN CORPUSCULAR VOLUME 86.2 fL (81.0-99.0); MEAN PLATELET VOLUME 12.1 fL (7.9-10.8); MONOCYTES # (AUTO) 0.5 10^3/uL (0.0-1.0); MONOCYTES % (AUTO) 6.3 %; NEUTROPHILS # (AUTO) 5.2 10^3/uL (1.5-6.6); NEUTROPHILS % (AUTO) 66.3 %; PLT - PLATELET COUNT 70 10^3/uL (130-450); RED BLOOD COUNT 4.72 10^6/uL (4.20-5.40); WHITE BLOOD COUNT 7.8 x10^3/uL (4.8-10.8)
[2022-11-18 00:46] LABS: ALBUMIN 3.6 g/dL (3.2-5.5); ALKALINE PHOSPHATASE 77 IU/L (42-121); ALT ALANINE AMINOTRANSFERASE 25 IU/L (10-60); AST ASPARTATE AMINOTRANSFERASE 25 IU/L (10-42); BILIRUBIN,TOTAL 0.4 mg/dL (0.2-1.0); BUN - BLOOD UREA NITROGEN 16 mg/dL (6-20); CALCIUM 9.1 mg/dL (8.5-10.3); CARBON DIOXIDE - CO2 22 mmol/L (21-32); CHLORIDE 107 mmol/L (101-111); ETOH - ETHANOL < 5.0 mg/dL; GFR - MDRD 57 (>89); GLUCOSE 120 mg/dL (70-100); LIPASE 32 U/L (22-51); POTASSIUM 3.8 mmol/L (3.5-5.0); SODIUM 139 mmol/L (135-145); TOTAL PROTEIN 7.2 g/dL (6.7-8.2)
[2022-11-18 00:52] LABS: AMPHETAMINE SCREEN,URINE NEGATIVE (NEGATIVE); BARBITURATE SCREEN,UR NEGATIVE (NEGATIVE); BENZODIAZEPINES SCREEN, URINE NEGATIVE (NEGATIVE); COCAINE SCREEN URINE NEGATIVE (NEGATIVE); METHADONE SCREEN, URINE NEGATIVE (NEGATIVE); METHAMPHETAMINES SCREEN, URINE NEGATIVE (NEGATIVE); OPIATE SCREEN, URINE NEGATIVE (NEGATIVE); OXYCODONE SCREEN, URINE NEGATIVE (NEGATIVE); PROPOXYPHENE SCREEN, URINE NEGATIVE (NEGATIVE); THC CANNABINOID SCREEN, URINE NEGATIVE (NEGATIVE); TRICYCLIC ANTIDEPRESSANT,URINE NEGATIVE (NEGATIVE)
[2022-11-18 01:00] VITALS: BP 127/76
[2022-11-18 01:03] LABS: INR 0.9 (0.8-1.2); PT - PROTHROMBIN TIME 10.3 secs (9.9-12.6)
--- NOTE | 2022-11-18 01:36 | ED Physician Documentation ---
History of Present Illness - Stated complaint Stated Complaint: TINGLING - Chief complaint Chief Complaint: Neuro - Additonal information Additional information: Patient 62-year-old female presenting to the emergency department with chief com plaint of numbness and tingling. She reports that she has a history of frequent episodes of numbness on the lower aspect of her face. States that it is not uncommon for her to involve both sides of her face however it usually resolves after a few hours. Today she had similar numbness as well as tremulousness in the musculature of her lower lip and jaw. States that the muscle spasm is new. Also reports that she was having numbness in her feet bilaterally. Family who is present at bedside report that she may have had a minimal, barely perceptible left-sided facial droop but no clear focal or lateralizing neurologic deficits or dysarthria. They contacted the [place] helpline and were told to come to the emergency department for evaluation. Review of Systems Constitutional: denies: Fever Ears: denies: Loss of hearing Nose: denies: Rhinorrhea / runny nose Throat: denies: Dental pain / toothache Cardiac: denies: Chest pain / pressure Respiratory: denies: Dyspnea GI: denies: Abdominal Pain : denies: Dysuria Skin: denies: Rash Musculoskeletal: denies: Neck pain Neurologic: reports: Numbness. 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 - Present Medications Home Medications: Ambulatory Orders Medication Instructions Recorded Confirmed ARIPiprazole [Abilify] 5 mg ORAL DAILY 05/10/18 11/17/22 Thyroid,Pork [Nature-Throid] 65 mg ORAL DAILY 05/10/18 11/17/22 [place] Carbonate [[place] 450 mg PO DAILY 08/23/18 11/17/22 Carbonate ER] [place]-3/Dha/Epa/Fish Oil [Fish Oil 1 tab ORAL DAILY 08/23/18 11/17/22 1,000 mg Softgel] Omeprazole 1 tab ORAL BID 08/23/18 11/17/22 lamoTRIgine [LaMICtal] 100 mg PO DAILY 08/23/18 11/17/22 buPROPion [Wellbutrin Xl] PO DAILY 11/17/22 - Allergies Allergies/Adverse Reactions: Allergies Allergy/AdvReac Type Severity Reaction Status Date / Time Opioids - Morphine Analogues Allergy Mild Itching Verified 11/17/22 22:56 Sulfa (Sulfonamide Allergy Mild Itching Verified 11/17/22 22:56 Antibiotics) divalproex sodium AdvReac Unknown Verified 11/17/22 22:56 [From Depakote] - Social History Does the pt smoke?: Yes Smoking Status: Current every day smoker Does the pt drink ETOH?: No Does the pt have substance abuse?: Yes PD ED PE NORMAL - Vitals Vital signs reviewed: Yes - General General: Alert and oriented X 3, No acute distress, Well developed/nourished - HEENT HEENT: Atraumatic, PERRL, EOMI, Ears normal, Moist mucous membranes, Pharynx benign - Neck Neck: Supple, no meningeal sign, No bony TTP, No adenopathy, Thyroid normal, No JVD - Cardiac Cardiac: RRR, No murmur, No gallop, No rub, Strong equal pulses - Respiratory Respiratory: No respiratory distress, Clear bilaterally - Abdomen Abdomen: Normal bowel sounds, Non tender - Female Female : Deferred - Rectal Rectal: Deferred - Back Back: No CVA TTP - Derm Derm: Normal color - Extremities Extremities: No deformity - Neuro Neuro: Alert and oriented X 3, 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, No motor deficit, Normal speech, Other (Patient has fine tremor in her upper extremities as well as periodic muscular spasms and lip tremor.) Results - Vitals Vitals: Vital Signs - 24 hr 11/17/22 11/17/22 11/17/22 22:59 23:01 23:33 Temperature 36.9 C Heart Rate 95 87 89 Respiratory 18 18 18 Rate Blood Pressure 155/88 H 158/85 H 139/89 H O2 Saturation 97 96 96 11/18/22 00:59 Temperature Heart Rate 87 Respiratory 19 Rate Blood Pressure 127/76 O2 Saturation 97 Oxygen O2 Source Room air - EKG (time done) 0022 Rate: Rate (enter#) (92) Rhythm: NSR [place]: Normal Intervals: RBBB QRS: Normal Ischemia: Normal ST segments Compare to prior EKG: Old EKG unavailable Computer interpretation: Agree with computer - Labs Labs: Laboratory Tests 11/17/22 11/17/22 11/17/22 00:20 23:03 23:29 WBC 7.8 RBC 4.72 Hgb 12.9 Hct 40.7 MCV 86.2 MCH 27.3 MCHC 31.7 L RDW 14.0 Plt Count 70 L MPV 12.1 H Neut # (Auto) 5.2 Lymph # (Auto) 2.1 [place] # (Auto) 0.5 Eos # (Auto) 0.0 Baso # (Auto) 0.0 Absolute Nucleated RBC 0.00 Nucleated RBC % 0.0 PT INR Sodium Potassium Chloride Carbon Dioxide Anion Gap BUN Creatinine Estimated GFR (MDRD) Glucose POC Whole Bld Glucose 129 H Calcium Magnesium Total Bilirubin AST ALT Alkaline Phosphatase Total Protein Albumin Globulin Albumin/Globulin Ratio Lipase TSH Urine Opiates Screen NEGATIVE Ur Oxycodone Screen NEGATIVE Urine Methadone Screen NEGATIVE Ur Propoxyphene Screen NEGATIVE Ur Barbiturates Screen NEGATIVE Ur Tricyclics Screen NEGATIVE Ur Phencyclidine Scrn NEGATIVE Ur Amphetamine Screen NEGATIVE U Methamphetamines Scrn NEGATIVE U Benzodiazepines Scrn NEGATIVE Urine Cocaine Screen NEGATIVE U Cannabinoids Screen NEGATIVE Ethyl Alcohol 11/17/22 11/17/22 11/18/22 23:29 23:29 00:50 WBC RBC Hgb Hct MCV MCH MCHC RDW Plt Count MPV Neut # (Auto) Lymph # (Auto) [place] # (Auto) Eos # (Auto) Baso # (Auto) Absolute Nucleated RBC Nucleated RBC % PT 10.3 INR 0.9 Sodium 139 Potassium 3.8 Chloride 107 Carbon Dioxide 22 Anion Gap 10.0 BUN 16 Creatinine 1.0 Estimated GFR (MDRD) 57 L Glucose 120 H POC Whole Bld Glucose Calcium 9.1 Magnesium 2.0 Total Bilirubin 0.4 AST 25 ALT 25 Alkaline Phosphatase 77 Total Protein 7.2 Albumin 3.6 Globulin 3.6 Albumin/Globulin Ratio 1.0 Lipase 32 TSH 5.59 Urine Opiates Screen Ur Oxycodone Screen Urine Methadone Screen Ur Propoxyphene Screen Ur Barbiturates Screen Ur Tricyclics Screen Ur Phencyclidine Scrn Ur Amphetamine Screen U Methamphetamines Scrn U Benzodiazepines Scrn Urine Cocaine Screen U Cannabinoids Screen Ethyl Alcohol < 5.0 PD Medical Decision Making - ED course Complexity details: reviewed results, d/w patient ED course: Patient 62-year-old female presenting to the emergency department with numbness and tremulousness of the bilateral aspect of her lower jaw as well as numbness of the feet. No reported focal or lateralizing neurologic deficits with the exception of a possible very minimal left-sided facial droop noted only briefly by the patient's daughter. No clear lateralizing deficits or speech difficulty appreciated. Patient reported that she has had numbness like this in the past but never tremulousness of the lower lip. She did endorse for significant life stressors including her mother who is currently battling cancer. Her EKG as outlined above demonstrated a right bundle branch block pattern without indications of acute cardiac ischemia or dysrhythmia. No previous EKGs were available for comparison however I do not believe that this represents acute right-sided heart strain as she did not endorse for any chest pain or shortness of breath that would be of imminent concern for ACS, PE or pulmonary hypertension. Her neurologic exam was otherwise very reassuring and that there was no focal or lateralizing neurologic deficit however she did have a notable upper extremity tremor which she stated was chronic for her. Labs obtained showed a thrombocytopenia which she also reports was chronic for her but no other significant abnormality, of note no significant electrolyte abnormality. Overall her presentation is not consistent with Stroke There does not appear to be a life-threatening cause for her symptoms. We discussed medications that are used on occasion to help with persistent tremulousness such as beta-blockade and she reports that she has been seen by neurology and has discussed using this medication in the past and declined it due to its potential side effects. She reported feeling comfortable going home and following up with primary care. She was discharged with clear return precautions given. Departure - Departure Disposition: 01 Home, Self Care Clinical Impression: Numbness and tingling, Lip tremor, Thrombocytopenia Comments: Thank you for allowing us to care for you today at [facility]. Today in the emergency department you were Evaluated for any possible life- threatening medical emergency. All of the testing in the emergency department including your blood work and EKG were all very reassuring. There are many reasons why people develop numbness and tingling as well as persistent tremor around the mouth or lips. Sometimes these can be related to electrolyte abnormalities however your blood work is very reassuring and that it does not show any severe or significant electrolyte deficiencies. Stress is also a potential contributor. I would like to recommend that you drink plenty of fluid and get plenty of rest over the course the next few days. If possible engage in activities that you find relaxing in an effort to "destress". I would like you to avoid stimulants such as caffeine in the immediate future. Please make a follow-up appointment with your primary care doctor. If it anytime you have any new or worsening symptoms please not hesitate to return. Discharge Date/Time: 11/18/22 01:44
== END 2022-11-18 01:44 | disposition home or self-care (01) ==
LOC: ED 22:49
DX: D69.6 Thrombocytopenia, unspecified (principal); R25.1 Tremor, unspecified; R20.2 Paresthesia of skin; F17.200 Nicotine dependence, unspecified, uncomplicated
CPT/HCPCS: 36415; 80053; 80306; 83690; 83735; 84443; 85025; 85610; 93005; 99283; 99284; G0480; 80320

== ENCOUNTER 2024-04-08 16:41 | Inpatient (IN) | payer MEDICARE ==
[2024-04-08 17:17] LABS: BASOPHILS % (AUTO) 0.2 %; HCT - HEMATOCRIT 41.9 % (37.0-47.0); HGB - HEMOGLOBIN 12.7 g/dL (12.0-16.0); LYMPHOCYTES # (AUTO) 1.9 10^3/uL (1.5-3.5); LYMPHOCYTES % (AUTO) 20.8 %; MEAN CORPUSCULAR HEMOGLOBIN 26.6 pg (27.0-31.0); MEAN CORPUSCULAR HGB CONC 30.3 g/dL (32.0-36.0); MEAN CORPUSCULAR VOLUME 87.8 fL (81.0-99.0); MEAN PLATELET VOLUME 9.5 fL (7.9-10.8); MONOCYTES # (AUTO) 0.4 10^3/uL (0.0-1.0); MONOCYTES % (AUTO) 3.9 %; NEUTROPHILS # (AUTO) 6.6 10^3/uL (1.5-6.6); NEUTROPHILS % (AUTO) 74.9 %; PLT - PLATELET COUNT 130 10^3/uL (130-450); RED BLOOD COUNT 4.77 10^6/uL (4.20-5.40); RED CELL DISTRIBUTION WIDTH 14.5 % (12.0-15.0); WHITE BLOOD COUNT 8.9 x10^3/uL (4.8-10.8)
[2024-04-08 17:31] LABS: ALBUMIN 4.1 g/dL (3.2-5.5); ALBUMIN/GLOBULIN RATIO 1.6 (1.0-2.2); BILIRUBIN,TOTAL 0.4 mg/dL (0.2-1.0); CALCIUM 9.6 mg/dL (8.5-10.3); CREATININE 1.2 mg/dL (0.6-1.3); POTASSIUM 4.2 mmol/L (3.5-4.5); TOTAL PROTEIN 6.7 g/dL (6.4-8.9)
[2024-04-08 17:39] LABS: TROPONIN I HIGH SENSITIVITY 4.3 ng/L (2.3-14.8)
--- NOTE | 2024-04-08 17:56 | ED Physician Documentation ---
History of Present Illness - Stated complaint Stated Complaint: SOA - Chief complaint Chief Complaint: Resp - Additonal information Additional information: 63-year-old female with history of right kidney mass unsure of cancer at this point in time, hypothyroidism, obesity, stage III chronic kidney disease, bipolar disorder presents emergency department for 3 days of shortness of breath. Patient says that she went to the mailbox and felt like she is having really hard time breathing and that she was just out of breath but it has gotten progressively worse over the last 2 to 3 days to days to the point where she is having shortness of breath when she is just sitting at rest. No nausea or vomiting no recent fevers or chills no upper respiratory symptoms or infection no rhinorrhea no cough. She also reports that she has a pretty severe headache. 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 - Present Medications Home Medications: Ambulatory Orders Medication Instructions Recorded Confirmed ARIPiprazole [Abilify] 5 mg ORAL DAILY 05/10/18 11/17/22 Thyroid,Pork [Nature-Throid] 65 mg ORAL DAILY 05/10/18 11/17/22 [place] Carbonate [[place] 450 mg PO DAILY 08/23/18 11/17/22 Carbonate ER] [place]-3/Dha/Epa/Fish Oil [Fish Oil 1 tab ORAL DAILY 08/23/18 11/17/22 1,000 mg Softgel] Omeprazole 1 tab ORAL BID 08/23/18 11/17/22 lamoTRIgine [LaMICtal] 100 mg PO DAILY 08/23/18 11/17/22 buPROPion [Wellbutrin Xl] PO DAILY 11/17/22 - Allergies Allergies/Adverse Reactions: Allergies Allergy/AdvReac Type Severity Reaction Status Date / Time Opioids - Morphine Analogues Allergy Mild Itching Verified 04/08/24 16:48 Sulfa (Sulfonamide Allergy Mild Itching Verified 04/08/24 16:48 Antibiotics) divalproex sodium AdvReac Unknown Verified 04/08/24 16:48 [[facility] - Social History Does the pt smoke?: No Smoking Status: Former smoker Does the pt drink ETOH?: Yes Does the pt have substance abuse?: No - Immunizations Immunizations are current?: No PD ED PE NORMAL - Vitals Vital signs reviewed: Yes - General General: Alert and oriented X 3, No acute distress, Well developed/nourished - HEENT HEENT: Atraumatic, PERRL - Neck Neck: Supple, no meningeal sign - Cardiac Cardiac: RRR - Respiratory Respiratory: Other (Right lung rhonchi) - Abdomen Abdomen: Normal bowel sounds, Soft, Non tender, Non distended, No organomegaly - Back Back: No CVA TTP - Derm Derm: Normal color, Warm and dry, No rash - Extremities Extremities: No deformity, No edema, No calf tenderness / cord Results - Vitals Vitals: Vital Signs - 24 hr 04/08/24 04/08/24 04/08/24 16:48 19:12 20:06 Temperature 36.9 C Heart Rate 94 69 88 Respiratory 20 16 18 Rate Blood Pressure 140/90 H 133/84 H O2 Saturation 100 94 Oxygen O2 Source Room air - EKG (time done) 1807 EKG releavant findings:: EKG personally interpreted by author of this note. Relevant findings are: Rate: Rate (enter#) (89) Rhythm: NSR [place]: Normal Intervals: Normal ID, RBBB QRS: Normal Ischemia: Normal ST segments - Labs Labs: Laboratory Tests 04/08/24 04/08/24 04/08/24 17:12 17:12 18:52 WBC 8.9 RBC 4.77 Hgb 12.7 Hct 41.9 MCV 87.8 MCH 26.6 L MCHC 30.3 L RDW 14.5 Plt Count 130 MPV 9.5 Neut # (Auto) 6.6 Lymph # (Auto) 1.9 [place] # (Auto) 0.4 Eos # (Auto) 0.0 Baso # (Auto) 0.0 Absolute Nucleated RBC 0.00 Nucleated RBC % 0.0 APTT D-Dimer > 1050.0 H Sodium 140 Potassium 4.2 Chloride 111 Carbon Dioxide 20 L Anion Gap 9.0 BUN 22 H Creatinine 1.2 Estimated GFR (MDRD) 46 L Glucose 110 H Calcium 9.6 Total Bilirubin 0.4 AST 11 ALT 11 Alkaline Phosphatase 70 Troponin I High Sens 4.3 B-Natriuretic Peptide Total Protein 6.7 Albumin 4.1 Globulin 2.6 Albumin/Globulin Ratio 1.6 Lipase 36 Urine Color Urine Clarity Urine pH Ur Specific [place] Urine Protein Urine Glucose (UA) Urine Ketones Urine Occult Blood Urine Nitrite Urine Bilirubin Urine Urobilinogen Ur Leukocyte Esterase Urine RBC Urine WBC Ur Squamous Epith Cells Urine Bacteria Ur Microscopic Review Urine Culture Comments Nasal Adenovirus (PCR) Nasal B. parapertussis DNA (PCR) Nasal Coronavir 229E PCR Nasal Coronavir HKU1 PCR Nasal Coronavir NL63 PCR Nasal Coronavir OC43 PCR Nasal Enterovir/Rhinovir PCR Nasal Influenza B PCR Nasal Influenza A PCR Nasal Parainfluen 1 PCR Nasal Parainfluen 2 PCR Nasal Parainfluen 3 PCR Nasal Parainfluen 4 PCR Nasal RSV (PCR) Nasal B.pertussis DNA PCR Nasal C.pneumoniae (PCR) Arnie Human Metapneumo PCR Nasal M.pneumoniae (PCR) Nasal SARS-CoV-2 (PCR) 04/08/24 04/08/24 04/08/24 18:52 18:52 18:52 WBC RBC Hgb Hct MCV MCH MCHC RDW Plt Count MPV Neut # (Auto) Lymph # (Auto) [place] # (Auto) Eos # (Auto) Baso # (Auto) Absolute Nucleated RBC Nucleated RBC % APTT 28.1 D-Dimer Sodium Potassium Chloride Carbon Dioxide Anion Gap BUN Creatinine Estimated GFR (MDRD) Glucose Calcium Total Bilirubin AST ALT Alkaline Phosphatase Troponin I High Sens B-Natriuretic Peptide 16 Total Protein Albumin Globulin Albumin/Globulin Ratio Lipase Urine Color Urine Clarity Urine pH Ur Specific [place] Urine Protein Urine Glucose (UA) Urine Ketones Urine Occult Blood Urine Nitrite Urine Bilirubin Urine Urobilinogen Ur Leukocyte Esterase Urine RBC Urine WBC Ur Squamous Epith Cells Urine Bacteria Ur Microscopic Review Urine Culture Comments Nasal Adenovirus (PCR) NOT DETECTED Nasal B. parapertussis DNA (PCR) NOT DETECTED Nasal Coronavir 229E PCR NOT DETECTED Nasal Coronavir HKU1 PCR NOT DETECTED Nasal Coronavir NL63 PCR NOT DETECTED Nasal Coronavir OC43 PCR NOT DETECTED Nasal Enterovir/Rhinovir PCR NOT DETECTED Nasal Influenza B PCR NOT DETECTED Nasal Influenza A PCR NOT DETECTED Nasal Parainfluen 1 PCR NOT DETECTED Nasal Parainfluen 2 PCR NOT DETECTED Nasal Parainfluen 3 PCR NOT DETECTED Nasal Parainfluen 4 PCR NOT DETECTED Nasal RSV (PCR) NOT DETECTED Nasal B.pertussis DNA PCR NOT DETECTED Nasal C.pneumoniae (PCR) NOT DETECTED Arnie Human Metapneumo PCR NOT DETECTED Nasal M.pneumoniae (PCR) NOT DETECTED Nasal SARS-CoV-2 (PCR) NOT DETECTED 04/08/24 22:20 WBC RBC Hgb Hct MCV MCH MCHC RDW Plt Count MPV Neut # (Auto) Lymph # (Auto) [place] # (Auto) Eos # (Auto) Baso # (Auto) Absolute Nucleated RBC Nucleated RBC % APTT D-Dimer Sodium Potassium Chloride Carbon Dioxide Anion Gap BUN Creatinine Estimated GFR (MDRD) Glucose Calcium Total Bilirubin AST ALT Alkaline Phosphatase Troponin I High Sens B-Natriuretic Peptide Total Protein Albumin Globulin Albumin/Globulin Ratio Lipase Urine Color YELLOW Urine Clarity HAZY Urine pH 7.0 Ur Specific [place] <=1.005 Urine Protein NEGATIVE Urine Glucose (UA) NEGATIVE Urine Ketones NEGATIVE Urine Occult Blood LARGE H Urine Nitrite NEGATIVE Urine Bilirubin NEGATIVE Urine Urobilinogen 0.2 (NORMAL) Ur Leukocyte Esterase SMALL H Urine RBC 6-10 H Urine WBC 11-25 H Ur Squamous Epith Cells FEW Squamous Urine Bacteria Few Ur Microscopic Review INDICATED Urine Culture Comments INDICATED Nasal Adenovirus (PCR) Nasal B. parapertussis DNA (PCR) Nasal Coronavir 229E PCR Nasal Coronavir HKU1 PCR Nasal Coronavir NL63 PCR Nasal Coronavir OC43 PCR Nasal Enterovir/Rhinovir PCR Nasal Influenza B PCR Nasal Influenza A PCR Nasal Parainfluen 1 PCR Nasal Parainfluen 2 PCR Nasal Parainfluen 3 PCR Nasal Parainfluen 4 PCR Nasal RSV (PCR) Nasal B.pertussis DNA PCR Nasal C.pneumoniae (PCR) Arnie Human Metapneumo PCR Nasal M.pneumoniae (PCR) Nasal SARS-CoV-2 (PCR) - Rads (name of study) CT chest angio Relevant Findings:: Final report received, EMP independent interpretation of test, Other (Bilateral pulmonary emboli appears to be acute several are nonocclusive. Overall moderate clot burden with mild pulmonary outflow tract enlargement no imaging evidence of right heart strain.) PD Medical Decision Making - ED course ED course: 63-year-old female presents emergency department for dyspnea on exertion. Differentials include but are not limited to pneumonia, COVID, viral syndrome, pulmonary embolism, heart failure. Labs are complete for further evaluation troponin and BNP were found to be unremarkable no leukocytosis no anemia BUN elevated at 22 GFR 46 patient does have known stage III chronic kidney disease. Because I cannot give patient a low score for Wells criteria a D-dimer was cleat complete for further evaluation and it was found to be greater than 1050. CT chest angio was complete for further evaluation of this elevated D-dimer and it was found to be positive for bilateral pulmonary emboli with a moderate clot burden. Mild pulmonary outflow tract enlargement without imaging evidence of right heart failure no findings such as peripheral opacities or pleural effusions to suggest pulmonary parenchymal ischemia. Patient was started on a heparin drip. Tylenol given for headache. She was also found to be hypoxic with ambulation desatting down to 86/87% on room air. Patient is agreeable to be admitted for further hospitalization workup. She did have 1 episode of hematuria urinalysis was complete for further evaluation which did show chaitanya kocytes most likely urinary tract infection as well. I spoke with hospitalist who is graciously agreed to admit the patient for further hospitalization and workup. Patient does report that she has a right kidney mass that she has a scheduled outpatient appointment for a biopsy for. Departure - Departure Disposition: [facility] DC/Xfer Forms: PCP List
--- NOTE | 2024-04-08 18:42 | XRAY Report ---
PROCEDURE: Chest 1V INDICATIONS: Chest pain TECHNIQUE: One view of the chest was acquired. COMPARISON: None. FINDINGS: Surgical changes and devices: None. Lungs and pleura: No pleural effusions or pneumothorax. Lungs are clear. Mediastinum: Mediastinal contours appear normal. Heart size is normal. Bones and chest wall: No suspicious bony lesions. Overlying soft tissues appear unremarkable. IMPRESSION: No acute cardiopulmonary process. Reviewed by: Cindy Beauchamp MD on 04/08/2024 6:41 PM PDT Approved by: Cindy Beauchamp MD on 04/08/2024 6:41 PM PDT Station ID: [id number]
[2024-04-08] MEDS: IPRATROPIUM/ALBUTEROL 3 ML NEB INH STA (18:58)
[2024-04-08] MEDS ORDERED: iohexoL-300 100 ML VIAL ONE (19:55)
[2024-04-08 20:07] LABS: B. PARAPERTUSSIS- RESP PCR PAN NOT DETECTED; B. PERTUSSIS- RESP PCR PANEL NOT DETECTED; C. PNEUMONIAE- RESP PCR PANEL NOT DETECTED; CORONAVIRUS 229E-RESP PCR NOT DETECTED; CORONAVIRUS HKU1-RESP PCR NOT DETECTED; CORONAVIRUS NL63-RESP PCR NOT DETECTED; CORONAVIRUS OC43-RESP PCR NOT DETECTED; HUMAN METAPNEUMOVIRUS NOT DETECTED; INFLUENZA A- RESP PCR PANEL NOT DETECTED; INFLUENZA B - RESP PCR PANEL NOT DETECTED; M. PNEUMONIAE- RESP PCR PANEL NOT DETECTED; PARAINFLUENZA VIRUS 1 NOT DETECTED; PARAINFLUENZA VIRUS 2 NOT DETECTED; PARAINFLUENZA VIRUS 3 NOT DETECTED; PARAINFLUENZA VIRUS 4 NOT DETECTED; RHINOVIRUS/ENTEROVIRUS NOT DETECTED; RSV- RESP PCR PANEL NOT DETECTED; SARS-CoV-2 -RESP PCR PANEL NOT DETECTED
[2024-04-08] MEDS: iohexoL-300 100 ML VIAL IVP ONE (20:28)
--- NOTE | 2024-04-08 21:21 | CT Report ---
PROCEDURE: Angio Chest INDICATIONS: SOA, elevated d-dimer CONTRAST: 100 ML OMNI 300 TECHNIQUE: After the administration of intravenous contrast, 2 mm axial images were acquired from the pulmonary apices to the posterior costophrenic angles during the arterial phase. In addition, 1 mm lung kernel and 5 mm soft tissue kernel reconstructions were performed. 3-dimensional coronal oblique maximum int ensity projection (MIP) reformats, 8 mm axial MIP, and 5 mm coronal and sagittal MPR reformats were t hen performed through the thorax. For radiation dose reduction, the following was used: automated exp osure control, adjustment of mA and/or kV according to patient size. COMPARISON: None. FINDINGS: Image quality: Excellent. Large vessels: There is a prominent clot at the distal aspect of the left main pulmonary artery exten ding for a short segment into the left upper lobe anterior segmental artery, and a moderate amount of clot extending into the proximal left lower lobe pulmonary artery and into anterior and posterior ba fabián segmental branches. Much of this clot does not appear entirely occlusive. Additionally in the rig ht lung, there is moderate clot at the distal aspect of the right upper lobe pulmonary artery extendi ng into the apical, anterior, and posterior segmental branches. Small amount of nonocclusive clot is seen in the proximal lateral right middle lobe and anterior basal segmental arteries. The main pulmonary outflow tract is enlarged measuring 3.4 cm in diameter. No definite intraventricul ar septal bowing. No pericardial effusion. Lungs and pleura: No groundglass opacities, peripheral consolidations or masses. Minor interstitial t hickening at the right lung base. No pleural effusion. Central and peripheral airways are normal ivy beba without bronchial wall thickening or bronchiectasis. No suspicious masses or nodules. Mediastinum: Heart size is normal. No pericardial effusion. No large vessel abnormality. There is a l arge hiatal hernia containing the proximal third of the stomach. Distal esophagus appears normal. Chest wall and lower neck: Thyroid is unremarkable. No axillary or supraclavicular adenopathy by size . Bones: No aggressive osseous abnormality. Degenerative endplate changes anteriorly in the mid thoraci c spine. Upper Abdomen: Prior cholecystectomy. Visible portions of the upper abdomen are otherwise normal. IMPRESSION: There are bilateral pulmonary emboli which appear acute, several are nonocclusive. Overall clot burde n is moderate. There is mild pulmonary outflow tract enlargement without imaging evidence of right he art strain. There are no findings such as peripheral opacities or pleural effusions to suggest pulmonary parenchy mal ischemia. Findings discussed at 2109 hours with the ordering provider KRAIG Cho. Reviewed by: Serina Aguilar MD on 04/08/2024 9:20 PM PDT Approved by: Serina Aguilar MD on 04/08/2024 9:20 PM PDT Station ID: [id number]
[2024-04-08] MEDS ORDERED: HEPARIN 25000UNITS/500ML (D5W) 25,000 UNIT/500 ML BAG IV SCH (22:00)
[2024-04-08] MEDS ORDERED: ONDANSETRON 4 MG/2 ML VIAL IVP PRN (22:23)
[2024-04-08] MEDS ORDERED: SODIUM CHLORIDE FLUSH 0.9% 10 ML SYRINGE IVP PRN (22:23)
[2024-04-08] MEDS ORDERED: IBUPROFEN 400 MG TABLET PO PRN (22:23)
[2024-04-08] MEDS ORDERED: TEMAZEPAM 15 MG CAPSULE PO PRN (22:23)
[2024-04-08] MEDS ORDERED: ACETAMINOPHEN 325 MG TABLET PO PRN (22:23)
[2024-04-08 22:27] LABS: BILIRUBIN,URINE NEGATIVE (NEGATIVE); GLUCOSE, URINE (UA) NEGATIVE (NEGATIVE); KETONES,URINE (UA) NEGATIVE (NEGATIVE); LEUKOCYTE ESTERASE, URINE SMALL (NEGATIVE); NITRITE,URINE NEGATIVE (NEGATIVE); OCCULT BLOOD,URINE LARGE (NEGATIVE); PROTEIN,URINE NEGATIVE (NEGATIVE); UROBILINOGEN,URINE 0.2 (NORMAL) E.U./dL (NORMAL)
[2024-04-08 22:28] LABS: CLARITY,URINE HAZY (CLEAR)
[2024-04-08] MEDS: ACETAMINOPHEN 325 MG TABLET PO STA (22:31)
[2024-04-08] MEDS: HEPARIN 25000UNITS/500ML (D5W) 25,000 UNIT/500 ML BAG IV SCH (22:31)
[2024-04-08 22:34] LABS: BACTERIA,URINE Few /HPF (None Seen); SQUAMOUS EPITHELIAL CELL,UR FEW Squamous (<= Few)
--- NOTE | 2024-04-08 22:35 | HISTORY & PHYSICAL EXAMINATION ---
Chief Complaint - Chief Complaint Chief Complaint: SOB and Fatigue History of Present Illness - Admitted From Admitted From:: Home - History Obtained From Records Reviewed: Yes History obtained from: Patient, and EMR and ED Team Exam Limitations: None - History of Present Illness HPI Comment/Other: 63-year-old female with history of right kidney mass unsure of cancer at this point in time, hypothyroidism, obesity, stage III chronic kidney disease, bipolar disorder presents emergency department for 3 days of shortness of breath. Patient says that she went to the mailbox and felt like she is having really hard time breathing and that she was just out of breath but it has gotten progressively worse over the last 2 to 3 days to days to the point where she is having shortness of breath when she is just sitting at rest. No nausea or vomiting no recent fevers or chills no upper respiratory symptoms or infection no rhinorrhea no cough. She also reports that she has a pretty severe headache. Patient recently had MRI which shows right renal mass, has appointment with URology on May 03, pcp trying to move the appointment sooner. 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 Patient friend at bedside with patient. 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 Meds/Allgy - Home Medications Home Medications: Ambulatory Orders Medication Instructions Recorded Confirmed ARIPiprazole [Abilify] 5 mg ORAL DAILY 05/10/18 11/17/22 Thyroid,Pork [Nature-Throid] 65 mg ORAL DAILY 05/10/18 11/17/22 [place] Carbonate [[place] 450 mg PO DAILY 08/23/18 11/17/22 Carbonate ER] [facility]-3/Dha/Epa/Fish Oil [Fish Oil 1 tab ORAL DAILY 08/23/18 11/17/22 1,000 mg Softgel] Omeprazole 1 tab ORAL BID 08/23/18 11/17/22 lamoTRIgine [LaMICtal] 100 mg PO DAILY 08/23/18 11/17/22 buPROPion [Wellbutrin Xl] PO DAILY 11/17/22 - Allergies Allergies/Adverse Reactions: Allergies Allergy/AdvReac Type Severity Reaction Status Date / Time Opioids - Morphine Analogues Allergy Mild Itching Verified 04/08/24 16:48 Sulfa (Sulfonamide Allergy Mild Itching Verified 04/08/24 16:48 Antibiotics) divalproex sodium AdvReac Unknown Verified 04/08/24 16:48 [From Depakote] Review of Systems - Respiratory Respiratory: reports: SOB with exertion Prior Level of Functionality: Independent with ADL Exam - Vital Signs Vital Signs: Vital Signs x48h Temp Pulse Resp BP Pulse Ox 04/08/24 20:06 88 18 133/84 H 94 04/08/24 19:12 69 16 04/08/24 16:48 36.9 C 94 20 140/90 H 100 - Physical Exam General Appearance: positive: No acute distress, Alert Eyes Bilateral: positive: Normal inspection Neck: positive: No JVD Respiratory: positive: Chest non-tender Cardiovascular: positive: Regular rate & rhythm Abdomen: positive: No organomegaly, Nml bowel sounds Skin: positive: Color nml, No rash Extremities: positive: Non-tender, Full ROM Neurologic/Psychiatric: positive: Oriented x3, CN's nml (2-12) Sepsis Event Note (H) - Evaluation Current Stage of Sepsis: Ruled out Conclusion/Plan - Problem List (1) Pulmonary embolus Conclusion/Plan: Admit to inpatient IV [facility] as [facility] Patient stating she has had bleeding in urine to monitor closely Also low platelets to be monitored Check Echo in am Work up on renal mass. Qualifiers: Pulmonary embolism type: multiple subsegmental (without acute cor pulmonale) Qualified Code(s): I26.94 - Multiple subsegmental pulmonary emboli without acute cor pulmonale (2) Bipolar disorder (manic depression) Conclusion/Plan: To resume home meds in am once dose confirmed Take Ariprazole, [place] Wellbutrin For anxiety will give Ativen po x one dose Monitor labs Monitor SPo2 Full code Qualifiers: Active/Remission status: currently active Current bipolar episode type: manic Current episode severity: severe Psychotic features: with psychotic features Qualified Code(s): F31.2 - Bipolar disorder, current episode manic severe with psychotic features - Lab Results Fish Bones: 04/08/24 17:12 04/08/24 17:12 - Diagnostic Imaging Results Diagnostic Imaging Results: positive: Final report reviewed
[2024-04-08 23:01] LABS: ALBUMIN 3.9 g/dL (3.2-5.5); ALBUMIN/GLOBULIN RATIO 1.4 (1.0-2.2); BILIRUBIN,TOTAL 0.5 mg/dL (0.2-1.0); CALCIUM 9.5 mg/dL (8.5-10.3); CREATININE 1.1 mg/dL (0.6-1.3); POTASSIUM 3.8 mmol/L (3.5-4.5); TOTAL PROTEIN 6.6 g/dL (6.4-8.9)
[2024-04-08] MEDS: LORazepam 2 MG/ML VIAL IVP STA (23:46)
[2024-04-09] MEDS: SODIUM CHLORIDE FLUSH 0.9% 10 ML SYRINGE IVP SCH (00:59)
[2024-04-09] MEDS: LORazepam 0.5 MG TABLET PO SCH (04:46)
[2024-04-09] MEDS: lamoTRIgine 100 MG TABLET PO SCH ×2 (05:14→22:46)
[2024-04-09] MEDS: LITHIUM 150 MG CAPSULE PO SCH ×2 (05:15→22:46)
[2024-04-09 06:12] LABS: BASOPHILS % (AUTO) 0.1 %; EOSINOPHILS % (AUTO) 0.1 %; HCT - HEMATOCRIT 37.6 % (37.0-47.0); HGB - HEMOGLOBIN 11.4 g/dL (12.0-16.0); LYMPHOCYTES # (AUTO) 2.3 10^3/uL (1.5-3.5); LYMPHOCYTES % (AUTO) 29.6 %; MEAN CORPUSCULAR HEMOGLOBIN 26.5 pg (27.0-31.0); MEAN CORPUSCULAR HGB CONC 30.3 g/dL (32.0-36.0); MEAN CORPUSCULAR VOLUME 87.4 fL (81.0-99.0); MONOCYTES # (AUTO) 0.3 10^3/uL (0.0-1.0); MONOCYTES % (AUTO) 4.4 %; NEUTROPHILS # (AUTO) 5.1 10^3/uL (1.5-6.6); NEUTROPHILS % (AUTO) 65.7 %; PLT - PLATELET COUNT 116 10^3/uL (130-450); RED CELL DISTRIBUTION WIDTH 14.5 % (12.0-15.0); WHITE BLOOD COUNT 7.7 x10^3/uL (4.8-10.8)
[2024-04-09] MEDS: LEVOTHYROXINE 25 MCG TABLET PO SCH (06:28)
[2024-04-09] MEDS: PANTOPRAZOLE 40 MG TABLET PO SCH (06:28)
[2024-04-09 07:23] LABS: TROPONIN I HIGH SENSITIVITY 5.5 ng/L (2.3-14.8)
[2024-04-09 07:24] LABS: CALCIUM 9.3 mg/dL (8.5-10.3); PHOSPHORUS 2.7 mg/dL (2.5-5.0); POTASSIUM 3.5 mmol/L (3.5-4.5)
[2024-04-09] MEDS ORDERED: LITHIUM CARBONATE 450 MG PO SCH (09:00)
[2024-04-09] MEDS ORDERED: THYROID PORK 65 MG ORAL SCH (09:00)
[2024-04-09] MEDS ORDERED: lamoTRIgine 100 MG TABLET PO SCH (09:00)
[2024-04-09] MEDS: ARIPiprazole 5 MG TABLET PO ONE (10:43)
--- NOTE | 2024-04-09 13:05 | PROVIDER PROGRESS NOTE ---
Assessment/Plan - Problem List (1) Pulmonary embolus Qualifiers: Pulmonary embolism type: multiple subsegmental (without acute cor pulmonale) Qualified Code(s): I26.94 - Multiple subsegmental pulmonary emboli without acute cor pulmonale Assessment/Plan: Pulmonary embolism severity index score is 121 which puts her in the high risk mortality catagory. CT angiogram done on presentation to the hospital revealed bilateral pulmonary emboli with moderate clot burden. Plan: 1. Continue anticoagulation with unfractionated heparin. 2. Obtain US of lower extremities bilaterally to evaluate for clot burden in lower extremities. 3. Consider transition to apixaban Thursday evening and no change in clinical conditon, discharge to home to following day. (2) Bipolar disorder (manic depression) Qualifiers: Active/Remission status: currently active Current bipolar episode type: manic Current episode severity: severe Psychotic features: with psychotic features Qualified Code(s): F31.2 - Bipolar disorder, current episode manic severe with psychotic features Assessment/Plan: Continue lithium, Abilify and Wellbutrin (3) Right renal mass Assessment/Plan: Scheduled to see urology in approximately on May 03, 2024. - Current Meds Current Meds: Current Medications Generic Name Dose Route Start Last Admin Trade Name Freq PRN Reason Stop Dose Admin Heparin Sodium/Dextrose 25,000 unit in 500 mls @ 32.169 mls/hr 04/08/24 22:00 04/09/24 07:36 Heparin Sodium/Dextrose IV 16 unit/kg/hr .[id number] ESTEFANY 28.595 mls/hr Titration Protocol 18 UNIT/KG/HR Levothyroxine Sodium 50 mcg 04/09/24 07:00 04/09/24 06:28 Levothyroxine 25 Mcg Tablet PO 50 mcg QDAC ESTEFANY Administration Lorazepam 0.5 mg 04/09/24 02:00 04/09/24 04:46 Lorazepam 0.5 Mg Tablet PO 04/10/24 01:59 0.5 mg ONCE ESTEFANY Administration Pantoprazole Sodium 40 mg 04/09/24 07:00 04/09/24 06:28 Pantoprazole 40 Mg Tablet PO 40 mg QDAC ESTEFANY Administration Sodium Chloride 10 ml 04/09/24 01:00 04/09/24 10:43 Sodium Chloride Flush 0.9% 10 Ml Syringe IVP Not Given 0100,0900,1700 ESTEFANY - Lab Result Fish Bone Diagrams: 04/09/24 05:15 04/09/24 05:15 - Additional Planning My Orders: My Active Orders 04/10/24 09:00 buPROPion [Wellbutrin Xl] 300 mg PO DAILY Subjective - Subjective Patient Reports: Other (Alert. Denies chest pain, dyspnea and abdominal pain. No other complaints at this time.) Objective Vital Signs: Vital Signs - 24 hr 04/08/24 04/08/24 04/08/24 16:48 19:12 20:06 Temperature 36.9 C Heart Rate 94 69 88 Heart Rate [ Brachial] Heart Rate [ Monitoring electrodes] Respiratory 20 16 18 Rate Blood Pressure 140/90 H 133/84 H Blood Pressure [Left Brachial artery] O2 Saturation 100 94 04/09/24 04/09/24 04/09/24 00:18 01:56 04:52 Temperature 36.8 C 36.6 C Heart Rate Heart Rate [ Brachial] Heart Rate [ 85 89 Monitoring electrodes] Respiratory 20 20 Rate Blood Pressure Blood Pressure 97/73 148/82 H [Left Brachial artery] O2 Saturation 92 96 94 04/09/24 08:46 Temperature 36.8 C Heart Rate Heart Rate [ 92 Brachial] Heart Rate [ Monitoring electrodes] Respiratory 18 Rate Blood Pressure Blood Pressure 114/83 H [Left Brachial artery] O2 Saturation 93 Oxygen O2 Source Room air I&O (Last 24 Hrs): Intake and Output Totals x24h 04/07/24 04/08/24 04/09/24 23:59 23:59 23:59 Intake Total 2307.539 Balance 2307.539 General: Alert, Oriented x3, No acute distress HEENT: Atraumatic Neck: No JVD, No thyromegaly Neuro: Alert, Non Focal Cardiovascular: Other (Positive S1-S2 no extra heart sounds.) Respiratory: Other (Good air exchange in all lung gaffney no wheezing no crackles) Abdomen: Other (Soft nontender nondistended positive bowel sounds) Extremities: No cyanosis, No edema Skin: No rashes - Results Results: Laboratory Results WBC 7.7 x10^3/uL (4.8-10.8) 04/09/24 05:15 RBC 4.30 10^6/uL (4.20-5.40) 04/09/24 05:15 Hgb 11.4 g/dL (12.0-16.0) L 04/09/24 05:15 Hct 37.6 % (37.0-47.0) 04/09/24 05:15 MCV 87.4 fL (81.0-99.0) 04/09/24 05:15 MCH 26.5 pg (27.0-31.0) L 04/09/24 05:15 MCHC 30.3 g/dL (32.0-36.0) L 04/09/24 05:15 RDW 14.5 % (12.0-15.0) 04/09/24 05:15 Plt Count 116 10^3/uL (130-450) L 04/09/24 05:15 MPV 10.0 fL (7.9-10.8) 04/09/24 05:15 Neut # (Auto) 5.1 10^3/uL (1.5-6.6) 04/09/24 05:15 Lymph # (Auto) 2.3 10^3/uL (1.5-3.5) 04/09/24 05:15 [place] # (Auto) 0.3 10^3/uL (0.0-1.0) 04/09/24 05:15 Eos # (Auto) 0.0 10^3/uL (0.0-0.7) 04/09/24 05:15 Baso # (Auto) 0.0 10^3/uL (0.0-0.1) 04/09/24 05:15 Absolute Nucleated RBC 0.00 x10^3/uL 04/09/24 05:15 Nucleated RBC % 0.0 /100WBC 04/09/24 05:15 APTT 149.0 secs (24.9-33.3) H* 04/09/24 05:15 D-Dimer > 1050.0 ng/mL (200.0-255.0) H 04/08/24 18:52 Sodium 138 mmol/L (135-145) 04/09/24 05:15 Potassium 3.5 mmol/L (3.5-4.5) 04/09/24 05:15 Chloride 111 mmol/L (101-111) 04/09/24 05:15 Carbon Dioxide 18 mmol/L (21-32) L 04/09/24 05:15 Anion Gap 9.0 (6-13) 04/09/24 05:15 BUN 17 mg/dL (6-20) 04/09/24 05:15 Creatinine 1.0 mg/dL (0.6-1.3) 04/09/24 05:15 Estimated GFR (MDRD) 56 (>89) L 04/09/24 05:15 Glucose 176 mg/dL (74-104) H 04/09/24 05:15 Calcium 9.3 mg/dL (8.5-10.3) 04/09/24 05:15 Phosphorus 2.7 mg/dL (2.5-5.0) 04/09/24 05:15 Magnesium 1.7 mg/dL (1.7-2.3) 04/09/24 05:15 Total Bilirubin 0.5 mg/dL (0.2-1.0) 04/08/24 22:43 AST 11 IU/L (10-42) 04/08/24 22:43 ALT 12 IU/L (10-60) 04/08/24 22:43 Alkaline Phosphatase 70 IU/L (42-121) 04/08/24 22:43 Troponin I High Sens 5.5 ng/L (2.3-14.8) 04/09/24 05:15 B-Natriuretic Peptide 16 pg/mL (5-100) 04/08/24 18:52 Total Protein 6.6 g/dL (6.4-8.9) 04/08/24 22:43 Albumin 3.9 g/dL (3.2-5.5) 04/08/24 22:43 Globulin 2.7 g/dL (2.1-4.2) 04/08/24 22:43 Albumin/Globulin Ratio 1.4 (1.0-2.2) 04/08/24 22:43 Lipase 36 U/L (11-82) 04/08/24 17:12 Urine Color YELLOW 04/08/24 22:20 Urine Clarity HAZY (CLEAR) 04/08/24 22:20 Urine pH 7.0 PH (5.0-7.5) 04/08/24 22:20 Ur Specific [place] <=1.005 (1.002-1.030) 04/08/24 22:20 Urine Protein NEGATIVE mg/dL (NEGATIVE) 04/08/24 22:20 Urine Glucose (UA) NEGATIVE mg/dL (NEGATIVE) 04/08/24 22:20 Urine Ketones NEGATIVE mg/dL (NEGATIVE) 04/08/24 22:20 Urine Occult Blood LARGE (NEGATIVE) H 04/08/24 22:20 Urine Nitrite NEGATIVE (NEGATIVE) 04/08/24 22:20 Urine Bilirubin NEGATIVE (NEGATIVE) 04/08/24 22:20 Urine Urobilinogen 0.2 (NORMAL) E.U./dL (NORMAL) 04/08/24 22:20 Ur Leukocyte Esterase SMALL (NEGATIVE) H 04/08/24 22:20 Urine RBC 6-10 /HPF (0-5) H 04/08/24 22:20 Urine WBC 11-25 /HPF (0-5) H 04/08/24 22:20 Ur Squamous Epith Cells FEW Squamous (<= Few) 04/08/24 22:20 Urine Bacteria Few /HPF (None Seen) 04/08/24 22:20 Ur Microscopic Review INDICATED 04/08/24 22:20 Urine Culture Comments INDICATED 04/08/24 22:20 Nasal Adenovirus (PCR) NOT DETECTED 04/08/24 18:52 Nasal B. parapertussis DNA (PCR) NOT DETECTED 04/08/24 18:52 Nasal Coronavir 229E PCR NOT DETECTED 04/08/24 18:52 Nasal Coronavir HKU1 PCR NOT DETECTED 04/08/24 18:52 Nasal Coronavir NL63 PCR NOT DETECTED 04/08/24 18:52 Nasal Coronavir OC43 PCR NOT DETECTED 04/08/24 18:52 Nasal Enterovir/Rhinovir PCR NOT DETECTED 04/08/24 18:52 Nasal Influenza B PCR NOT DETECTED 04/08/24 18:52 Nasal Influenza A PCR NOT DETECTED 04/08/24 18:52 Nasal Parainfluen 1 PCR NOT DETECTED 04/08/24 18:52 Nasal Parainfluen 2 PCR NOT DETECTED 04/08/24 18:52 Nasal Parainfluen 3 PCR NOT DETECTED 04/08/24 18:52 Nasal Parainfluen 4 PCR NOT DETECTED 04/08/24 18:52 Nasal RSV (PCR) NOT DETECTED 04/08/24 18:52 Nasal B.pertussis DNA PCR NOT DETECTED 04/08/24 18:52 Nasal C.pneumoniae (PCR) NOT DETECTED 04/08/24 18:52 Arnie Human Metapneumo PCR NOT DETECTED 04/08/24 18:52 Nasal M.pneumoniae (PCR) NOT DETECTED 04/08/24 18:52 Nasal SARS-CoV-2 (PCR) NOT DETECTED 04/08/24 18:52 Sepsis Event Note (H) - Evaluation Current Stage of Sepsis: Ruled out
--- NOTE | 2024-04-09 13:15 | PHARMACY PROGRESS NOTE ---
- Best Possible Medication History Admit Date and Time: 04/08/24 3327 Processed by: Pharmacy Medications reviewed in ED?: No Medication History completed: Yes Patient Interview: Completed (by pharmacy operations specialistAlejandro) Secondary Source(s): Written medication list, Other family member (daughter), Insurance records As the person ultimately responsible for medication therapy, providers are able to order a medication from an existing home medication list in [facility] via the "Reconcile Routine" prior to Confirmation of that medication by intelligence support officer. Such practice is discouraged except when the physician, in their clinical judgment, deems that a medical need exists for a medication without regard to previous use.
[2024-04-09] MEDS ORDERED: ARIPiprazole 5 MG TABLET PO SCH (21:00)
[2024-04-09] MEDS: ARIPiprazole 5 MG TABLET PO SCH (22:45)
[2024-04-10 05:28] LABS: HCT - HEMATOCRIT 37.1 % (37.0-47.0); HGB - HEMOGLOBIN 11.7 g/dL (12.0-16.0); MEAN CORPUSCULAR HEMOGLOBIN 26.9 pg (27.0-31.0); MEAN CORPUSCULAR HGB CONC 31.5 g/dL (32.0-36.0); MEAN CORPUSCULAR VOLUME 85.3 fL (81.0-99.0); MEAN PLATELET VOLUME 9.8 fL (7.9-10.8); RED BLOOD COUNT 4.35 10^6/uL (4.20-5.40); RED CELL DISTRIBUTION WIDTH 14.6 % (12.0-15.0); WHITE BLOOD COUNT 7.7 x10^3/uL (4.8-10.8)
[2024-04-10 05:43] LABS: CALCIUM 9.5 mg/dL (8.5-10.3); CREATININE 1.1 mg/dL (0.6-1.3); MAGNESIUM 1.6 mg/dL (1.7-2.3); PHOSPHORUS 3.5 mg/dL (2.5-5.0); POTASSIUM 3.7 mmol/L (3.5-4.5)
--- NOTE | 2024-04-10 06:58 | PROVIDER PROGRESS NOTE ---
Assessment/Plan - Problem List (1) Pulmonary embolus Qualifiers: Pulmonary embolism type: multiple subsegmental (without acute cor pulmonale) Qualified Code(s): I26.94 - Multiple subsegmental pulmonary emboli without acute cor pulmonale Assessment/Plan: Pulmonary embolism severity index score is 121 which puts her in the high risk mortality catagory. CT angiogram done on presentation to the hospital revealed bilateral pulmonary emboli with moderate clot burden. Doppler venous study of legs completed 04/10/24 did not reveal any clot burden. Plan: 1. Continue anticoagulation with unfractionated heparin. Transition to apixaban tonight starting with 10 mg twice daily for 7 days and 5 mg twice daily. 2. If patient does well overnight and completes her workup (echocardiogram not available until Wednesday 04/11) she most likely can be discharged to home. 3. Recommend discontinuing apixaban 36 hours (do not take 3 doses prior to biopsy of kidney). (2) Bipolar disorder (manic depression) Qualifiers: Active/Remission status: currently active Current bipolar episode type: manic Current episode severity: severe Psychotic features: with psychotic features Qualified Code(s): F31.2 - Bipolar disorder, current episode manic severe with psychotic features Assessment/Plan: Continue lithium, Abilify and Wellbutrin (3) Right renal mass Assessment/Plan: Scheduled to see urology in approximately on May 03, 2024. - Current Meds Current Meds: Current Medications Generic Name Dose Route Start Last Admin Trade Name Freq PRN Reason Stop Dose Admin Aripiprazole 7.5 mg 04/09/24 21:00 04/09/24 22:45 Aripiprazole 5 Mg Tablet PO 7.5 mg QPM ESTEFANY Administration Heparin Sodium/Dextrose 25,000 unit in 500 mls @ 32.169 mls/hr 04/08/24 22:00 04/10/24 06:21 Heparin Sodium/Dextrose IV 16 unit/kg/hr .[id number] ESTEFANY 28.595 mls/hr Titration Protocol 18 UNIT/KG/HR Lamotrigine 200 mg 04/09/24 07:28 04/09/24 22:46 Lamotrigine 100 Mg Tablet PO 200 mg QPM ESTEFANY Administration Levothyroxine Sodium 50 mcg 04/09/24 07:00 04/09/24 06:28 Levothyroxine 25 Mcg Tablet PO 50 mcg QDAC ESTEFANY Administration [place] Carbonate 450 mg 04/09/24 07:27 04/09/24 22:46 [place] 150 Mg Capsule PO 450 mg QPM ESTEFANY Administration Pantoprazole Sodium 40 mg 04/09/24 07:00 04/09/24 06:28 Pantoprazole 40 Mg Tablet PO 40 mg QDAC ESTEFANY Administration Sodium Chloride 10 ml 04/09/24 01:00 04/10/24 03:10 Sodium Chloride Flush 0.9% 10 Ml Syringe IVP 10 ml 0100,0900,1700 ESTEFANY Administration - Lab Result Fish Bone Diagrams: 04/10/24 05:10 04/10/24 05:10 - Additional Planning My Orders: My Active Orders 04/10/24 07:00 Duplex Ext Veins Bilateral [US] Routine 04/10/24 09:00 buPROPion [Wellbutrin Xl] 300 mg PO DAILY Subjective - Subjective Patient Reports: Other (Alert. Denies shortness of breath, chest pain, abdominal pain. No other complaints at this time.) Objective Vital Signs: Vital Signs - 24 hr 04/09/24 04/09/24 04/09/24 08:46 13:00 15:24 Temperature 36.8 C 36.8 C 36.7 C Heart Rate [ 92 90 84 Brachial] Respiratory 18 16 18 Rate Blood Pressure 114/83 H 128/82 H 144/90 H [Left Brachial artery] O2 Saturation 93 95 95 04/09/24 04/10/24 04/10/24 20:25 00:05 04:56 Temperature 37.0 C 36.4 C L 37.0 C Heart Rate [ 83 80 81 Brachial] Respiratory 18 18 18 Rate Blood Pressure 128/81 H 123/80 124/77 [Left Brachial artery] O2 Saturation 95 94 94 Oxygen O2 Source Room air I&O (Last 24 Hrs): Intake and Output Totals x24h 04/08/24 04/09/24 04/10/24 23:59 23:59 23:59 Intake Total 4317.252 1120.823 Balance 4317.252 1120.823 General: Alert, Oriented x3, No acute distress HEENT: Atraumatic Neck: No JVD Neuro: Alert, Non Focal Cardiovascular: Other (Positive S1-S2 no extra heart sounds.) Respiratory: Other (Good air exchange in all lung gaffney no wheezing or crackles.) Abdomen: Other (Soft nontender nondistended positive bowel sound) Extremities: No cyanosis, No edema Skin: No rashes - Results Results: Laboratory Results WBC 7.7 x10^3/uL (4.8-10.8) 04/10/24 05:10 RBC 4.35 10^6/uL (4.20-5.40) 04/10/24 05:10 Hgb 11.7 g/dL (12.0-16.0) L 04/10/24 05:10 Hct 37.1 % (37.0-47.0) 04/10/24 05:10 MCV 85.3 fL (81.0-99.0) 04/10/24 05:10 MCH 26.9 pg (27.0-31.0) L 04/10/24 05:10 MCHC 31.5 g/dL (32.0-36.0) L 04/10/24 05:10 RDW 14.6 % (12.0-15.0) 04/10/24 05:10 Plt Count 128 10^3/uL (130-450) L 04/10/24 05:10 MPV 9.8 fL (7.9-10.8) 04/10/24 05:10 Neut # (Auto) 5.1 10^3/uL (1.5-6.6) 04/09/24 05:15 Lymph # (Auto) 2.3 10^3/uL (1.5-3.5) 04/09/24 05:15 [place] # (Auto) 0.3 10^3/uL (0.0-1.0) 04/09/24 05:15 Eos # (Auto) 0.0 10^3/uL (0.0-0.7) 04/09/24 05:15 Baso # (Auto) 0.0 10^3/uL (0.0-0.1) 04/09/24 05:15 Absolute Nucleated RBC 0.00 x10^3/uL 04/09/24 05:15 Nucleated RBC % 0.0 /100WBC 04/09/24 05:15 APTT 93.5 secs (24.9-33.3) H* 04/10/24 05:10 D-Dimer > 1050.0 ng/mL (200.0-255.0) H 04/08/24 18:52 Sodium 140 mmol/L (135-145) 04/10/24 05:10 Potassium 3.7 mmol/L (3.5-4.5) 04/10/24 05:10 Chloride 112 mmol/L (101-111) H 04/10/24 05:10 Carbon Dioxide 20 mmol/L (21-32) L 04/10/24 05:10 Anion Gap 8.0 (6-13) 04/10/24 05:10 BUN 14 mg/dL (6-20) 04/10/24 05:10 Creatinine 1.1 mg/dL (0.6-1.3) 04/10/24 05:10 Estimated GFR (MDRD) 50 (>89) L 04/10/24 05:10 Glucose 109 mg/dL (74-104) H 04/10/24 05:10 Calcium 9.5 mg/dL (8.5-10.3) 04/10/24 05:10 Phosphorus 3.5 mg/dL (2.5-5.0) 04/10/24 05:10 Magnesium 1.6 mg/dL (1.7-2.3) L 04/10/24 05:10 Total Bilirubin 0.5 mg/dL (0.2-1.0) 04/08/24 22:43 AST 11 IU/L (10-42) 04/08/24 22:43 ALT 12 IU/L (10-60) 04/08/24 22:43 Alkaline Phosphatase 70 IU/L (42-121) 04/08/24 22:43 Troponin I High Sens 5.5 ng/L (2.3-14.8) 04/09/24 05:15 B-Natriuretic Peptide 16 pg/mL (5-100) 04/08/24 18:52 Total Protein 6.6 g/dL (6.4-8.9) 04/08/24 22:43 Albumin 3.9 g/dL (3.2-5.5) 04/08/24 22:43 Globulin 2.7 g/dL (2.1-4.2) 04/08/24 22:43 Albumin/Globulin Ratio 1.4 (1.0-2.2) 04/08/24 22:43 Lipase 36 U/L (11-82) 04/08/24 17:12 Urine Color YELLOW 04/08/24 22:20 Urine Clarity HAZY (CLEAR) 04/08/24 22:20 Urine pH 7.0 PH (5.0-7.5) 04/08/24 22:20 Ur Specific [place] <=1.005 (1.002-1.030) 04/08/24 22:20 Urine Protein NEGATIVE mg/dL (NEGATIVE) 04/08/24 22:20 Urine Glucose (UA) NEGATIVE mg/dL (NEGATIVE) 04/08/24 22:20 Urine Ketones NEGATIVE mg/dL (NEGATIVE) 04/08/24 22:20 Urine Occult Blood LARGE (NEGATIVE) H 04/08/24 22:20 Urine Nitrite NEGATIVE (NEGATIVE) 04/08/24 22:20 Urine Bilirubin NEGATIVE (NEGATIVE) 04/08/24 22:20 Urine Urobilinogen 0.2 (NORMAL) E.U./dL (NORMAL) 04/08/24 22:20 Ur Leukocyte Esterase SMALL (NEGATIVE) H 04/08/24 22:20 Urine RBC 6-10 /HPF (0-5) H 04/08/24 22:20 Urine WBC 11-25 /HPF (0-5) H 04/08/24 22:20 Ur Squamous Epith Cells FEW Squamous (<= Few) 04/08/24 22:20 Urine Bacteria Few /HPF (None Seen) 04/08/24 22:20 Ur Microscopic Review INDICATED 04/08/24 22:20 Urine Culture Comments INDICATED 04/08/24 22:20 Nasal Adenovirus (PCR) NOT DETECTED 04/08/24 18:52 Nasal B. parapertussis DNA (PCR) NOT DETECTED 04/08/24 18:52 Nasal Coronavir 229E PCR NOT DETECTED 04/08/24 18:52 Nasal Coronavir HKU1 PCR NOT DETECTED 04/08/24 18:52 Nasal Coronavir NL63 PCR NOT DETECTED 04/08/24 18:52 Nasal Coronavir OC43 PCR NOT DETECTED 04/08/24 18:52 Nasal Enterovir/Rhinovir PCR NOT DETECTED 04/08/24 18:52 Nasal Influenza B PCR NOT DETECTED 04/08/24 18:52 Nasal Influenza A PCR NOT DETECTED 04/08/24 18:52 Nasal Parainfluen 1 PCR NOT DETECTED 04/08/24 18:52 Nasal Parainfluen 2 PCR NOT DETECTED 04/08/24 18:52 Nasal Parainfluen 3 PCR NOT DETECTED 04/08/24 18:52 Nasal Parainfluen 4 PCR NOT DETECTED 04/08/24 18:52 Nasal RSV (PCR) NOT DETECTED 04/08/24 18:52 Nasal B.pertussis DNA PCR NOT DETECTED 04/08/24 18:52 Nasal C.pneumoniae (PCR) NOT DETECTED 04/08/24 18:52 Arnie Human Metapneumo PCR NOT DETECTED 04/08/24 18:52 Nasal M.pneumoniae (PCR) NOT DETECTED 04/08/24 18:52 Nasal SARS-CoV-2 (PCR) NOT DETECTED 04/08/24 18:52 Sepsis Event Note (H) - Evaluation Current Stage of Sepsis: Ruled out
[2024-04-10] MEDS ORDERED: LEVOTHYROXINE SODIUM 50 MCG PO SCH (07:00)
[2024-04-10] MEDS: buPROPion XL 150 MG TABLET PO SCH (08:14)
[2024-04-10] MEDS ORDERED: PHENOL THROAT SPRAY 177 ML MM PRN (15:19)
[2024-04-10] MEDS: MAGNESIUM OXIDE 400 MG TABLET PO SCH (15:28)
--- NOTE | 2024-04-10 16:45 | Ultrasound Report ---
PROCEDURE: Duplex Ext Veins Bilateral INDICATIONS: Audie Reed DNP TECHNIQUE: Real-time imaging, as well as color and pulse Doppler interrogation, were performed of the deep veins of both legs from the inguinal ligament to the popliteal fossa. Attempted visualization of the calf veins was performed. COMPARISON: None FINDINGS: The deep veins are normally compressible, and free of intraluminal thrombus. Color and pu lse Doppler demonstrate normal phasic intravascular flow. There is normal augmentation response to d istal compression maneuver. IMPRESSION: No deep venous thrombosis of the visualized lower extremities. Reviewed by: Jackson Phipps MD on 04/10/2024 4:44 PM PDT Approved by: Jackson Phipps MD on 04/10/2024 4:44 PM PDT Station ID: [id number]
[2024-04-10] MEDS: APIXABAN 5 MG TABLET PO SCH (21:08)
[2024-04-11 05:49] LABS: HCT - HEMATOCRIT 39.1 % (37.0-47.0); HGB - HEMOGLOBIN 12.1 g/dL (12.0-16.0); MEAN CORPUSCULAR HEMOGLOBIN 26.5 pg (27.0-31.0); MEAN CORPUSCULAR HGB CONC 30.9 g/dL (32.0-36.0); MEAN CORPUSCULAR VOLUME 85.7 fL (81.0-99.0); MEAN PLATELET VOLUME 9.7 fL (7.9-10.8); RED BLOOD COUNT 4.56 10^6/uL (4.20-5.40); RED CELL DISTRIBUTION WIDTH 14.5 % (12.0-15.0); WHITE BLOOD COUNT 7.9 x10^3/uL (4.8-10.8)
[2024-04-11 06:05] LABS: CALCIUM 9.9 mg/dL (8.5-10.3); CREATININE 1.1 mg/dL (0.6-1.3); MAGNESIUM 1.7 mg/dL (1.7-2.3); POTASSIUM 4.2 mmol/L (3.5-4.5)
--- NOTE | 2024-04-11 11:44 | Discharge Plan ---
Discharge Plan Problem Reviewed?: Yes Disposition: Home, Self Care Condition: Stable Prescriptions: Apixaban [Eliquis] 5 mg PO BID #72 tablet Diet: Regular Activity Restrictions: Activity as Tolerated Shower Restrictions: No Driving Restrictions: No Weight Bearing: Full Weight Instruction Topics: Apixaban oral tablets, Embolism Pulmonary Health Concerns: History of Present Illness: Ragini Craft is a 63-year-old woman with a past medical history significant for a right kidney mass, hypothyroidism, obesity, and bipolar disorder who presents to the emergency room complaining of shortness of breath for the past [address] angiogram performed in the emergency room revealed prominent clot in the distal aspect of the left main pulmonary artery and extending into the left upper lobe anterior segmental artery, and moderate amount of clot extending into the proximal left lower lobe pulmonary artery and into the anterior and posterior basal segmental branches. There also appear to be a small amount of nonocclusive clot seen in the proximal lateral right middle lobe and the anterior basal's segmental arteries. Ms. Craft was admitted to the hospital as an inpatient and treatment was initiated with unfractionated heparin intravenously. Her pulmonary embolism severity score index was calculated to be 121 which placed her in the high risk mortality category. On hospital day #2 the patient underwent a bilateral venous duplex of her lower extremities which revealed no deep venous thrombosis. Treatment was initiated with apixaban 10 mg twice daily and patient appears to be tolerating this medication well. Patient had no complications during her hospitalization. Patient is stable for discharge and has been discharged to home. Plan of Treatment: 1. Take all medications as prescribed. 2. Please avoid taking aspirin or NSAIDs such as ibuprofen and Naprosyn while you are taking apixaban.Please avoid activities that may increase your risk of fall. 3. Please seek care in the emergency room or acute care clinic if you develop acute onset of shortness of breath or increased leg swelling. 4. Please follow-up with your primary care physician in 2 weeks. Care Goals: Goal of care is to return to baseline functioning. Assessment: (1) Pulmonary embolus Qualifiers: Pulmonary embolism type: multiple subsegmental (without acute cor pulmonale) Qualified Code(s): I26.94 - Multiple subsegmental pulmonary emboli without acute cor pulmonale Assessment/Plan: Pulmonary embolism severity index score is 121 which puts her in the high risk mortality catagory. CT angiogram done on presentation to the hospital revealed bilateral pulmonary emboli with moderate clot burden. Plan: 1. Patient to take 7 days of apixaban 10 mg twice daily and then apixaban 5 mg twice daily. She should not stop this medication unless she discusses stopping this medication with her provider. 2. Avoid medications such as aspirin and NSAIDS (ibuprofen and Naprosyn) 3. Avoid activities that will put her at higher risk of falling. (2) Bipolar disorder (manic depression) Qualifiers: Active/Remission status: currently active Current bipolar episode type: manic Current episode severity: severe Psychotic features: with psychotic features Qualified Code(s): F31.2 - Bipolar disorder, current episode manic severe with psychotic features Assessment/Plan: Continue lithium, Abilify and Wellbutrin (3) Right renal mass Assessment/Plan: Scheduled to see urology in approximately on May 03, 2024. No Smoking: If you smoke, Please STOP! Call for help. Follow-up with: JUSTINE DUNN MD [Primary Care Provider] -
--- NOTE | 2024-04-11 11:44 | DISCHARGE SUMMARY ---
Discharge Summary Admit Date: 04/08/24 Discharge Date: 04/11/24 Discharging Provider: Adama Yarbrough MD Primary Care Provider: Caroline Calderon MD Code Status: Attempt Resuscitation Condition at Discharge: Stable Discharge Disposition: 01 Home, Self Care - DIAGNOSES Admission Diagnoses: (1) Pulmonary embolus (2) Bipolar disorder (manic depression) (3) Right renal mass Discharge Diagnoses with Status of Each Condition: (1) Pulmonary embolus (2) Bipolar disorder (manic depression) (3) Right renal mass (4) Obstructive sleep apnea (5) Morbid Obesity - HPI History of Present Illness: Ragini Craft is a 63-year-old woman with a past medical history significant for a right kidney mass, hypothyroidism, obesity, and bipolar disorder who presents to the emergency room complaining of shortness of breath for the past [address] angiogram performed in the emergency room revealed prominent clot in the distal aspect of the left main pulmonary artery and extending into the left upper lobe anterior segmental artery, and moderate amount of clot extending into the proximal left lower lobe pulmonary artery and into the anterior and posterior basal segmental branches. There also appear to be a small amount of nonocclusive clot seen in the proximal lateral right middle lobe and the anterior basal's segmental arteries. Ms. Craft was admitted to the hospital as an inpatient and treatment was initiated with unfractionated heparin intravenously. Her pulmonary embolism severity score index was calculated to be 121 which placed her in the high risk mortality category. On hospital day #2 the patient underwent a bilateral venous duplex of her lower extremities which revealed no deep venous thrombosis. Treatment was initiated with apixaban 10 mg twice daily and patient appears to be tolerating this medication well. Patient had no complications during her hospitalization. Patient is stable for discharge and has been discharged to home. - HOSPITAL COURSE Hospital Course: See HPI - ALLERGIES Allergies/Adverse Reactions: Allergies Allergy/AdvReac Type Severity Reaction Status Date / Time Opioids - Morphine Analogues Allergy Mild Itching Verified 04/08/24 16:48 Sulfa (Sulfonamide Allergy Mild Itching Verified 04/08/24 16:48 Antibiotics) divalproex sodium AdvReac Unknown Verified 04/08/24 16:48 [From Depakote] - MEDICATIONS Home Medications: Ambulatory Orders Medication Instructions Recorded Confirmed ARIPiprazole [Abilify] 7.5 mg PO QPM 05/10/18 04/09/24 [place] Carbonate [[place] 450 mg PO QPM 08/23/18 04/09/24 Carbonate ER] Omeprazole 40 mg PO QDAC 08/23/18 04/09/24 lamoTRIgine [LaMICtal] 200 mg PO QPM 08/23/18 04/09/24 buPROPion [Wellbutrin Xl] 300 mg PO DAILY 11/17/22 04/09/24 Cholecalciferol [Vitamin D3] 50 mcg PO DAILY 04/09/24 04/09/24 Cyanocobalamin (Vitamin B-12) 1,000 mcg PO DAILY 04/09/24 04/09/24 [Vitamin B-12] Levothyroxine Sodium 50 mcg PO QDAC 04/09/24 04/09/24 Apixaban [Eliquis] 5 mg PO BID #72 tablet 04/11/24 - PHYSICAL EXAM AT DISCHARGE General Appearance: positive: No acute distress Eyes Bilateral: positive: Conjunctivae nml, No scleral icterus Neck: positive: No JVD, Trachea midline Respiratory: positive: Other (Good air exchange in all lung gaffney no wheezing o r crackles) Cardiovascular: positive: Other (Positive S1-S2 no extra heart sounds.) Abdomen: positive: Other (Soft nontender nondistended positive bowel sounds.) Skin: positive: No rash Extremities: positive: Non-tender, No pedal edema - LABS Result Diagrams: 04/11/24 05:37 04/11/24 05:37 - SEPSIS Current Stage of Sepsis: Ruled out - FOLLOW UP Follow Up: Please follow-up with your primary care provider, Dr. Caroline Calderon in 2-4 weeks. - TIME SPENT Time Spent in Discharge (Minutes): 32 (Time spent on discharge include time coordinating discharge, prescribing medications and counseling patient and family on the use of anticoagulants (apixaban) and possbile consequences of falling. )
[2024-04-11 16:21] VITALS: BP 141/91; O2SAT 95
== END 2024-04-11 16:50 | disposition home or self-care (01) | DRG 176 ==
LOC: ED 16:41 → ICU 22:25 → MS2 22:26
PROVIDERS: ADMIT Internal Medicine; ATTEND Internal Medicine
DX: I26.99 Other pulmonary embolism without acute cor pulmonale (principal); R09.02 Hypoxemia; R31.29 Other microscopic hematuria; E66.9 Obesity, unspecified; I26.94 Multiple subsegmental thrombotic pulmonary emboli without acute cor pulmonale; I45.10 Unspecified right bundle-branch block; Z20.818 Contact with and (suspected) exposure to other bacterial communicable diseases; Z20.822 Contact with and (suspected) exposure to COVID-19; Z20.828 Contact with and (suspected) exposure to other viral communicable diseases; Z87.891 Personal history of nicotine dependence; Z68.41 Body mass index [BMI] 40.0-44.9, adult; F31.2 Bipolar disorder, current episode manic severe with psychotic features; N28.89 Other specified disorders of kidney and ureter; G47.33 Obstructive sleep apnea (adult) (pediatric); E66.01 Morbid (severe) obesity due to excess calories; E03.9 Hypothyroidism, unspecified; N18.30 Chronic kidney disease, stage 3 unspecified; Z79.899 Other long term (current) drug therapy; Z79.890 Hormone replacement therapy; Z88.2 Allergy status to sulfonamides; Z88.5 Allergy status to narcotic agent; Z88.8 Allergy status to other drugs, medicaments and biological substances
CPT/HCPCS: 36415; 71045; 71275; 80048; 80053; 81001; 83690; 83735; 83880; 84100; 84484; 85025; 85027; 85379; 85730; 87086; 87633; 93005; 93970; 94640; 99285; A9270; J2060; Q9967; 81003; 85520

== ENCOUNTER 2024-04-19 20:58 | Emergency (ER) | payer MEDICARE ==
[2024-04-19 21:18] VITALS: O2SAT 100
--- NOTE | 2024-04-19 21:24 | ED Physician Documentation ---
History of Present Illness - Stated complaint Stated Complaint: SOA - Chief complaint Chief Complaint: General - History obtained from History obtained from: Patient - Additonal information Additional information: She has a history of uterine hyperplasia and then was on progesterone for same. She was admitted here about a week and a half ago with PEs related to that and was started on anticoagulation and is now off of the progesterone which has caused some bleeding initially light now heavy from the vagina with some cramps. She is not more short of breath and does not have postural orthostasis. PD PAST MEDICAL HISTORY - Past Medical History Cardiovascular: None Respiratory: None Neuro: None Endocrine/Autoimmune: HyPOthyroidism, Other GI: None : None, Other HEENT: Chronic hearing loss, Other Psych: Depression, Bipolar disorder, Other Musculoskeletal: None Derm: Other - Past Surgical History Past Surgical History: Yes Ortho: Hip replacement /[employer]: section - Present Medications Home Medications: Ambulatory Orders Medication Instructions Recorded Confirmed ARIPiprazole [Abilify] 7.5 mg PO QPM 05/10/18 04/09/24 [place] Carbonate [[place] 450 mg PO QPM 08/23/18 04/09/24 Carbonate ER] Omeprazole 40 mg PO QDAC 08/23/18 04/09/24 lamoTRIgine [LaMICtal] 200 mg PO QPM 08/23/18 04/09/24 buPROPion [Wellbutrin Xl] 300 mg PO DAILY 11/17/22 04/09/24 Cholecalciferol [Vitamin D3] 50 mcg PO DAILY 04/09/24 04/09/24 Cyanocobalamin (Vitamin B-12) 1,000 mcg PO DAILY 04/09/24 04/09/24 [Vitamin B-12] Levothyroxine Sodium 50 mcg PO QDAC 04/09/24 04/09/24 Apixaban [Eliquis] 5 mg PO BID #72 tablet 04/11/24 - Allergies Allergies/Adverse Reactions: Allergies Allergy/AdvReac Type Severity Reaction Status Date / Time Opioids - Morphine Analogues Allergy Mild Itching Verified 04/19/24 21:09 Sulfa (Sulfonamide Allergy Mild Itching Verified 04/19/24 21:09 Antibiotics) divalproex sodium AdvReac Unknown Verified 04/19/24 21:09 [From Depakote] - Social History Does the pt smoke?: No Smoking Status: Former smoker Does the pt drink ETOH?: Yes Does the pt have substance abuse?: No - Immunizations Immunizations are current?: No PD ED PE NORMAL - Vitals Vital signs reviewed: Yes - General General: Alert and oriented X 3, No acute distress, Well developed/nourished - Neck Neck: Supple, no meningeal sign - Cardiac Cardiac: RRR, No murmur - Respiratory Respiratory: No respiratory distress, Clear bilaterally - Abdomen Abdomen: Non tender - Extremities Extremities: No edema, No calf tenderness / cord - Neuro Neuro: Alert and oriented X 3, Normal speech Results - Vitals Vitals: Vital Signs - 24 hr 04/19/24 04/19/24 21:03 21:55 Temperature 36.3 C L 36 C L Heart Rate 91 88 Respiratory 17 16 Rate Blood Pressure 143/89 H 135/74 H O2 Saturation 100 100 Oxygen O2 Source Room air - Labs Labs: Laboratory Tests 04/19/24 04/19/24 04/19/24 21:30 21:30 21:30 WBC 9.5 RBC 4.76 Hgb 12.7 Hct 40.8 MCV 85.7 MCH 26.7 L MCHC 31.1 L RDW 14.1 Plt Count 226 MPV 9.3 Neut # (Auto) 6.4 Lymph # (Auto) 2.6 [place] # (Auto) 0.5 Eos # (Auto) 0.0 Baso # (Auto) 0.0 Absolute Nucleated RBC 0.00 Nucleated RBC % 0.0 Sodium 137 Potassium 4.1 Chloride 106 Carbon Dioxide 22 Anion Gap 9.0 BUN 23 H Creatinine 1.2 Estimated GFR (MDRD) 46 L Glucose 114 H Calcium 10.1 Total Bilirubin 0.4 AST 12 ALT 15 Alkaline Phosphatase 77 Total Protein 7.7 Albumin 4.4 Globulin 3.3 Albumin/Globulin Ratio 1.3 Blood Type A POSITIVE Antibody Screen NEGATIVE PD Medical Decision Making - ED course ED course: She presents with postmenopausal vaginal bleeding but has known uterine hyperplasia and is now withdrawing from her hormonal treatment. She is now anticoagulated and concerned about the volume of bleeding. We did a CBC which demonstrated a hemoglobin of 12.7 and hematocrit of 40.8 which is actually higher than when she left the hospital recently. She does not need transfusion obviously but close follow-up was advised. Departure - Departure Disposition: 01 Home, Self Care Clinical Impression: Vaginal bleeding, Anticoagulated by anticoagulation treatment Condition: Good Record reviewed to determine appropriate education?: Yes Instructions: ED Bleed Irregular Vaginal Comments: Your blood counts are actually better today than when you left the hospital. Specifically today your hemoglobin was 12.7 and hematocrit 40.8. They were lower than this when you actually had the pulmonary embolism so at this particular moment in time there is no need for transfusion but we would like you to return if you get worse. Still follow-up with your primary care physician with consideration for gynecology referral for IUD placement or what ever other treatment they think is appropriate for your uterine hyperplasia. Forms: PCP List Discharge Date/Time: 04/19/24 21:57
[2024-04-19 21:38] LABS: BASOPHILS % (AUTO) 0.1 %; EOSINOPHILS % (AUTO) 0.1 %; HCT - HEMATOCRIT 40.8 % (37.0-47.0); HGB - HEMOGLOBIN 12.7 g/dL (12.0-16.0); LYMPHOCYTES # (AUTO) 2.6 10^3/uL (1.5-3.5); LYMPHOCYTES % (AUTO) 26.8 %; MEAN CORPUSCULAR HEMOGLOBIN 26.7 pg (27.0-31.0); MEAN CORPUSCULAR HGB CONC 31.1 g/dL (32.0-36.0); MEAN CORPUSCULAR VOLUME 85.7 fL (81.0-99.0); MEAN PLATELET VOLUME 9.3 fL (7.9-10.8); MONOCYTES # (AUTO) 0.5 10^3/uL (0.0-1.0); MONOCYTES % (AUTO) 5.6 %; NEUTROPHILS # (AUTO) 6.4 10^3/uL (1.5-6.6); PLT - PLATELET COUNT 226 10^3/uL (130-450); RED BLOOD COUNT 4.76 10^6/uL (4.20-5.40); RED CELL DISTRIBUTION WIDTH 14.1 % (12.0-15.0); WHITE BLOOD COUNT 9.5 x10^3/uL (4.8-10.8)
[2024-04-19 21:54] LABS: ALBUMIN 4.4 g/dL (3.2-5.5); ALBUMIN/GLOBULIN RATIO 1.3 (1.0-2.2); BILIRUBIN,TOTAL 0.4 mg/dL (0.2-1.0); CALCIUM 10.1 mg/dL (8.5-10.3); CREATININE 1.2 mg/dL (0.6-1.3); POTASSIUM 4.1 mmol/L (3.5-4.5); TOTAL PROTEIN 7.7 g/dL (6.4-8.9)
[2024-04-19 21:56] VITALS: BP 135/74
== END 2024-04-19 21:57 | disposition home or self-care (01) ==
LOC: ED 20:58
DX: N95.0 Postmenopausal bleeding (principal); N85.2 Hypertrophy of uterus; Z79.01 Long term (current) use of anticoagulants; Z86.711 Personal history of pulmonary embolism; Z87.891 Personal history of nicotine dependence
CPT/HCPCS: 36415; 80053; 85025; 86850; 86900; 86901; 99283

== ENCOUNTER 2024-05-20 08:12 | Outpatient (CLI) | payer MEDICARE ==
--- NOTE | 2024-05-23 08:28 | Mammography Report ---
BILATERAL DIGITAL SCREENING MAMMOGRAM 3D/2D: 05/20/2024 CLINICAL: Routine screening. Comparison is made to exams dated: 04/22/2023 mammogram, 06/27/2022 mammogram, and 05/19/2021 mammogram - [facility]. Both breasts are almost entirely fatty (category a/<25% glandular tissue). No significant masses, calcifications, or other findings are seen in either breast. There has been no significant interval change. IMPRESSION: NEGATIVE There is no mammographic evidence of malignancy. A 1 year screening mammogram is recommended. Based on the Tyrer Cuzick model (a risk assessment model) the patient's lifetime risk is 5.4% and her 10 year risk is 2.2%. According to the ACR, ACS, and NCCN guidelines, an annual breast MRI exam jer g with mammogram is recommended if the patient's lifetime risk is 20% or greater. This exam was interpreted at Station ID: [id number]. NOTE: For mammograms, a report in lay terms will be sent to the patient. Approximately 15% of breast malignancies will not be visualized mammographically. In the management of a palpable breast mass, a negative mammogram must not discourage biopsy of a clinically suspicious lesion. Electronically Signed By: Herminio allen/colin:05/20/2024 09:43:20 letter sent: No_Letter ACR BI-RADS Category 1: Negative 3341F PARENCHYMAL PATTERN: (F) - The breast(s) demonstrate(s) diffuse fatty replacement. BI-RADS CATEGORY: (1) - 1 RECOMMENDATION: (ANNUAL) - Recommend routine annual screening mammography. [id number] 1 year screening LATERALITY: (B)
== END 2024-05-20 08:13 | disposition home or self-care (01) ==
LOC: DI 08:12
DX: Z13.21 Encounter for screening for nutritional disorder (principal)